=== PATIENT | female | born 1970 | race Caucasian/White ===

== ENCOUNTER 2020-03-05 10:54 | Inpatient (IN) ==
[2020-03-05] MEDS ORDERED: LEVAQUIN PREMIX IV 500 MG 500 MG/100 ML BAG IV SCH (13:00)
[2020-03-05] MEDS ORDERED: LEVAQUIN PREMIX IV 500 MG 500 MG/100 ML BAG IV ONE (13:07)
[2020-03-05] MEDS: ROBITUSSIN DM PO SCH ×3 (13:18→21:00)
[2020-03-05] MEDS: NS 1000 ML 1,000 ML IV SCH (13:19)
[2020-03-05 13:27] LABS: ALANINE AMINOTRANSFERASE 31 Units/L (12-78); ALBUMIN 3.6 g/dL (3.4-5.0); ALKALINE PHOSPHATASE 125 Units/L (46-116); ASPARTATE AMINO TRANSFERASE 25 Units/L (15-37); BLOOD UREA NITROGEN 9 mg/dL (7-18); CALCIUM 8.6 mg/dL (8.5-10.1); CARBON DIOXIDE 34.2 mmol/L (21-32); CHLORIDE 101 mmol/L (98-107); CREATININE 0.84 mg/dL (0.55-1.02); MAGNESIUM 2.1 mg/dL (1.7-2.9); SODIUM 142 mmol/L (136-145); TOTAL PROTEIN 8.4 g/dL (6.4-8.2); eGFR NON BLACK RACES > 60 (>60)
[2020-03-05 13:29] LABS: BASOPHILS # (AUTO) 0.1 X10^3/uL (0.0-0.1); BASOPHILS % (AUTO) 0.9 % (0.2-1.0); EOSINOPHILS # (AUTO) 0.1 x10^3/uL (0.0-0.2); HEMATOCRIT 30.9 % (36.0-47.0); HEMOGLOBIN 9.5 g/dL (12.0-16.0); LYMPHOCYTES # (AUTO) 2.2 X10^3/uL (1.3-2.9); LYMPHOCYTES % (AUTO) 23.3 % (21.0-51.0); MEAN CORPUSCULAR HEMOGLOBIN 22.2 pg (27.0-34.0); MEAN CORPUSCULAR HGB CONC 30.8 g/dL (33.0-35.0); MEAN PLATELET VOLUME 7.8 fL (7.4-11.0); MONOCYTES % (AUTO) 10.3 % (0.0-13.0); NEUTROPHILS % (AUTO) 64.5 % (42.0-75.0); PLATELET COUNT 451 X10^3/uL (150.0-450.0); RED CELL DISTRIBUTION WIDTH 22.3 % (11.6-16.5); WHITE BLOOD COUNT 9.3 X10^3/uL (3.6-10.0)
[2020-03-05 13:50] LABS: PLATELET MORPHOLOGY COMMENT NORMAL (NORMAL)
[2020-03-05 13:51] LABS: ANISOCYTOSIS 2+; HYPOCHROMASIA 1+; MICROCYTOSIS SLIGHT
--- NOTE | 2020-03-05 13:54 | RAD ---
HISTORYSOB, COUGH, BRONCHITISSTUDYCHEST x-ray, 1 VIEWCOMPARISONCT 01/23/2020 and 11/17/2018FINDINGSVague lung infiltrates persist there may be slightly nodular density in the right upper lobe. Findings are very similar to prior study. Heart is normal in size. No pneumothorax or pleural effusion is seen.IMPRESSIONPersistent lung infiltrates with slight nodularity, similar to recent CT. These may be chronic interstitial lung disease changes given chronicity. Less promise interstitial and ground-glass infiltrates are seen on 11/17/2018 exam. Follow-up chest CT in a few months time may be useful to monitor progression.Electronically signed by: Omkar Rosales (March 05, 2020 13:52:58)
[2020-03-05 14:31] LABS: MYCOPLASMA PNEUMONIAE IGM AB POSITIVE (NEGATIVE)
[2020-03-05 15:40] LABS: ABG BASE EXCESS 5.9 mmol/L (-2.0-2.0)
[2020-03-05 15:41] LABS: ABG HCO3 32.5 mmol/L (22-26)
[2020-03-05] MEDS: DUONEB 0.5 MG/3 MG (3 mL) NEB SCH ×2 (16:55→21:15)
[2020-03-05] MEDS ORDERED: ADACEL or BOOSTRIX TDaP VACCINE IM ONE (17:39)
--- NOTE | 2020-03-05 17:44 | DR.H&P ---
H&P - History & Physical for Day of: H&P Date: 03/05/20 - Chief Complaint Chief Complaint: CCC, FELTON, LLE PUNCTURE WOUND DRAINING - History of Present Illness History of Present Illness: PT IS 49 WF DIRECT ADMIT WITH CCC, SOB, WORSE ON EXERTION WITH DIFFUSE WHEEZING. PT HAD BILATERAL LOWER EXTREMITY EDEMA + 3 WITH PUNCTURE WOUND TO LEFT THOMPSON WITH CONTINUOUS CLEAR DRAINAGE. PT HAS TAKEN 2 ROUNDS OF PO ANTIBIOTICS, KEFLEX AND DOXYCYCLINE WITHOUT IMPROVEMENT OF CHEST CONGESTION. PT DENIES FEVER OR KNOWN COVID EXPOSURE. PT HAS PMH OF COPD, ANEMIA, OA, HTN. PT ADMITTED FOR TREATMENT OF ACUTE ILLNESS. 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, Other - Family History Family Medical History: Hypertension - Social History Does patient currently use any type of tobacco product: Yes Have you used tobacco products in the last 12 months: Yes Type of Tobacco Use: Cigarettes Does any household member use tobacco: Yes Alcohol Use: None Drug Use: None - Medications Home Medications: ciprofloxacin [From Cipro] Allergy (Verified 03/05/20 12:32) Sulfa (Sulfonamide Antibiotics) [SULFA] Allergy (Verified 06/23/18 14:52) - Review of Systems Constitutional: Weakness Eyes: No Symptoms Reported ENT: No Symptoms Reported Respiratory: Cough, Dry, Shortness of Breath, SOB with Excertion, Sputum, Wheezing Cardiovascular: No Symptoms Reported, Edema Gastrointestinal: No Symptoms Reported Genitourinary: No Symptoms Reported Musculoskeletal: Back Pain, Leg Pain Skin: Wound Neurological: Weakness - Physical Exam Vital Signs: Temperature 98.2 F Pulse Rate [Left Brachial] 66 Pulse Rate 75 Respiratory Rate 20 Blood Pressure [Left Arm] 182/84 Blood Pressure 113/71 O2 Sat by Pulse Oximetry 100 Oriented: Normal Eyes: Normal Ear: Normal Nose: Normal Throat: Normal Respiratory: RLL Diminished, LLL Diminished Cardiovascular: Edema : Normal Auscultation: Bowel Sounds: Normal Palpation: Normal Tenderness: Normal Skin: Decreased Turgur, Wound (PUNCTURE WOUND TO LEFT THOMPSON) Musculoskeletal: Left, Leg, Back:Thoracic, Back:Lumbar Psychiatric: Anxiety Affect: Anxious Speech Pattern: Clear, Appropriate - Assessment/Plan (1) COPD exacerbation Status: Acute Plan: ADMIT, RESP CONSULT. COVID 19 ON ADMISSION. STREP, FLU MYCOPLASMA COLLECTED ON ADMISSION. SPUTUM CULTURE. WOUND CULTURE, IV ATBX. GENTLE IV HYDRATION, DUO NEBS, IV SOLU MEDROL. BP CONTROL, CXR ON ADMISSION, VERIFY HOME MEDICATION (2) Puncture wound of leg not thigh, left Status: Acute (3) Hypertension Status: Acute (4) Anemia Status: Acute - Allergies Allergies/Adverse Reactions: Allergies Allergy/AdvReac Type Severity Reaction Status Date / Time ciprofloxacin [From Cipro] Allergy Verified 03/05/20 12:32 Sulfa (Sulfonamide Allergy Verified 06/23/18 14:52 Antibiotics) [SULFA]
[2020-03-05] MEDS: SOLU-Medrol 125 MG VIAL IVP SCH ×2 (18:15→22:56)
[2020-03-05] MEDS: HEMOCYTE-PLUS PO SCH (18:16)
[2020-03-05] MEDS: REQUIP PO SCH (21:00)
[2020-03-05] MEDS: PULMICORT NEB TX 0.5 MG NEB SCH (21:15)
[2020-03-05] MEDS: NORCO 7.5/325 MG TAB PO PRN (22:00)
[2020-03-06] MEDS: NS 1000 ML 1,000 ML IV SCH ×4 (00:32→21:59)
[2020-03-06] MEDS: DUONEB 0.5 MG/3 MG (3 mL) NEB SCH ×6 (00:40→20:41)
[2020-03-06] MEDS: NORCO 7.5/325 MG TAB PO PRN ×2 (04:00→21:59)
[2020-03-06 05:16] LABS: BASOPHILS % (AUTO) 0.2 % (0.2-1.0); HEMOGLOBIN 9.6 g/dL (12.0-16.0); LYMPHOCYTES # (AUTO) 0.5 X10^3/uL (1.3-2.9); LYMPHOCYTES % (AUTO) 5.9 % (21.0-51.0); MEAN CORPUSCULAR HEMOGLOBIN 21.8 pg (27.0-34.0); MEAN CORPUSCULAR VOLUME 72.8 fL (80.0-100.0); MONOCYTES # (AUTO) 0.1 x10^3/uL (0.3-0.8); MONOCYTES % (AUTO) 0.8 % (0.0-13.0); NEUTROPHILS % (AUTO) 93.1 % (42.0-75.0); PLATELET COUNT 459 X10^3/uL (150.0-450.0); RED BLOOD COUNT 4.39 X10^6/uL (3.5-5.4); RED CELL DISTRIBUTION WIDTH 21.7 % (11.6-16.5); WHITE BLOOD COUNT 8.6 X10^3/uL (3.6-10.0)
[2020-03-06 05:29] LABS: ALANINE AMINOTRANSFERASE 29 Units/L (12-78); ALBUMIN 3.6 g/dL (3.4-5.0); ALKALINE PHOSPHATASE 115 Units/L (46-116); ASPARTATE AMINO TRANSFERASE 21 Units/L (15-37); BLOOD UREA NITROGEN 8 mg/dL (7-18); CALCIUM 8.8 mg/dL (8.5-10.1); CARBON DIOXIDE 32.4 mmol/L (21-32); CHLORIDE 100 mmol/L (98-107); COR NA(FOR HYPERGLY) 142 mmol/L (136-145); SODIUM 140 mmol/L (136-145); TOTAL PROTEIN 8.8 g/dL (6.4-8.2); eGFR NON BLACK RACES > 60 (>60)
[2020-03-06] MEDS: SOLU-Medrol 125 MG VIAL IVP SCH (05:48)
[2020-03-06 06:12] LABS: BAND NEUTROPHILS % 4 % (0-10); PLATELET MORPHOLOGY COMMENT NORMAL (NORMAL)
[2020-03-06 06:13] LABS: ANISOCYTOSIS 1+; HYPOCHROMASIA 2+
[2020-03-06 06:37] LABS: BILIRUBIN,URINE NEGATIVE (NEGATIVE); BLOOD/HEMOGLOBIN,URINE NEGATIVE (NEGATIVE); GLUCOSE, URINE NEGATIVE (NEGATIVE); KETONES,URINE NEGATIVE (NEGATIVE); LEUKOCYTE ESTERASE ,URINE NEGATIVE (NEGATIVE); NITRITES,URINE NEGATIVE (NEGATIVE); PROTEIN,URINE NEGATIVE (NEGATIVE); UROBILINOGEN,URINE NORMAL (NORMAL)
[2020-03-06 06:38] LABS: APPEARANCE,URINE CLEAR (CLEAR); COLOR,URINE YELLOW (YELLOW)
[2020-03-06 08:46] VITALS: BMI 44.6
[2020-03-06] MEDS ORDERED: ZESTRIL TAB 20 MG ONE (08:52)
[2020-03-06] MEDS ORDERED: LASIX IVP SCH (09:00)
[2020-03-06] MEDS ORDERED: K-DUR TAB 20 MEQ PO SCH (09:00)
[2020-03-06] MEDS ORDERED: LISINOPRIL HYDROCHLOROTHIAZIDE PO SCH (09:00)
[2020-03-06] MEDS: PULMICORT NEB TX 0.5 MG NEB SCH ×2 (09:18→20:40)
[2020-03-06] MEDS: HYDROCHLOROTHIAZIDE 12.5 MG CAP PO SCH (09:18)
[2020-03-06] MEDS: ZESTRIL TAB 20 MG PO SCH (09:18)
[2020-03-06] MEDS: HEMOCYTE-PLUS PO SCH (09:18)
[2020-03-06] MEDS: REQUIP PO SCH ×3 (09:18→21:59)
[2020-03-06] MEDS: ROBITUSSIN DM PO SCH ×4 (09:19→21:59)
[2020-03-06] MEDS: PROTONIX INJ 40 MG VIAL IVP SCH (09:20)
[2020-03-06] MEDS: ZITHROMAX INJ 500 MG VIAL 500 MG in D5W 250 ML IV 250 ML IV SCH (09:22)
[2020-03-06] MEDS: PROzac PO SCH (09:36)
[2020-03-06] MEDS: INFeD or DEXFERRUM 25 MG in NS 100 ML IV 100 ML IV NR ×2 (10:14→13:00)
[2020-03-06] MEDS ORDERED: INFeD or DEXFERRUM 975 MG in NS 500 ML IV 500 ML IV NR (11:00)
[2020-03-07] MEDS: DUONEB 0.5 MG/3 MG (3 mL) NEB SCH ×6 (01:17→20:15)
[2020-03-07] MEDS: REQUIP PO SCH ×3 (05:00→22:00)
[2020-03-07] MEDS: NORCO 7.5/325 MG TAB PO PRN ×2 (05:02→22:00)
[2020-03-07 06:14] LABS: BASOPHILS % (AUTO) 0.3 % (0.2-1.0); EOSINOPHILS % (AUTO) 0.1 % (0.9-2.9); HEMATOCRIT 28.8 % (36.0-47.0); HEMOGLOBIN 8.8 g/dL (12.0-16.0); LYMPHOCYTES # (AUTO) 2.1 X10^3/uL (1.3-2.9); LYMPHOCYTES % (AUTO) 11.7 % (21.0-51.0); MEAN CORPUSCULAR HEMOGLOBIN 22.2 pg (27.0-34.0); MEAN CORPUSCULAR HGB CONC 30.7 g/dL (33.0-35.0); MEAN CORPUSCULAR VOLUME 72.2 fL (80.0-100.0); MEAN PLATELET VOLUME 7.9 fL (7.4-11.0); MONOCYTES # (AUTO) 1.6 x10^3/uL (0.3-0.8); MONOCYTES % (AUTO) 9.2 % (0.0-13.0); NEUTROPHILS # (AUTO) 14.1 x10^3/uL (2.2-4.8); NEUTROPHILS % (AUTO) 78.7 % (42.0-75.0); PLATELET COUNT 443 X10^3/uL (150.0-450.0); RED BLOOD COUNT 3.98 X10^6/uL (3.5-5.4); WHITE BLOOD COUNT 17.9 X10^3/uL (3.6-10.0)
[2020-03-07 06:15] LABS: ALBUMIN 3.1 g/dL (3.4-5.0); ALKALINE PHOSPHATASE 134 Units/L (46-116); BLOOD UREA NITROGEN 11 mg/dL (7-18); CALCIUM 8.3 mg/dL (8.5-10.1); CARBON DIOXIDE 34.2 mmol/L (21-32); CHLORIDE 103 mmol/L (98-107); COR NA(FOR HYPERGLY) 141 mmol/L (136-145); CREATININE 0.81 mg/dL (0.55-1.02); SODIUM 141 mmol/L (136-145); TOTAL PROTEIN 7.6 g/dL (6.4-8.2); eGFR NON BLACK RACES > 60 (>60)
[2020-03-07 06:46] LABS: ALANINE AMINOTRANSFERASE 27 Units/L (12-78); ASPARTATE AMINO TRANSFERASE 28 Units/L (15-37)
[2020-03-07] MEDS: NS 1000 ML 1,000 ML IV SCH (07:00)
[2020-03-07 07:06] LABS: ANISOCYTOSIS 1+; HYPOCHROMASIA 1+; PLATELET MORPHOLOGY COMMENT NORMAL (NORMAL)
[2020-03-07] MEDS ORDERED: ZESTRIL TAB 20 MG ONE (08:07)
[2020-03-07] MEDS: PULMICORT NEB TX 0.5 MG NEB SCH ×2 (09:10→20:15)
[2020-03-07] MEDS: HEMOCYTE-PLUS PO SCH (09:12)
[2020-03-07] MEDS: ZITHROMAX INJ 500 MG VIAL 500 MG in D5W 250 ML IV 250 ML IV SCH (09:12)
[2020-03-07] MEDS: HYDROCHLOROTHIAZIDE 12.5 MG CAP PO SCH (09:12)
[2020-03-07] MEDS: ZESTRIL TAB 20 MG PO SCH (09:13)
[2020-03-07] MEDS: PROTONIX INJ 40 MG VIAL IVP SCH ×2 (09:13→22:00)
[2020-03-07] MEDS: PROzac PO SCH (09:13)
[2020-03-07] MEDS: ROBITUSSIN DM PO SCH ×4 (09:13→22:00)
[2020-03-07] MEDS ORDERED: PHARMACY CONSULT - VANCOMYCIN XX SCH (10:00)
[2020-03-07] MEDS: VANCOMYCIN HCL 1 G in D5W 250 ML IV 250 ML IV SCH ×3 (11:11→22:00)
--- NOTE | 2020-03-07 18:27 | RAD ---
HISTORY:COPDStudy: Single view chestComparison:03/05/2020, chest CT 01/23/2020Findings:Nonspecific interstitial prominence is again seen in the lungs similar to prior with mild perihilar bronchial thickening. No new infiltrate, pleural effusion or pneumothorax identified. Heart size within normal limits. The soft tissues are intactIMPRESSION:1. Nonspecific interstitial prominence and perihilar bronchial thickening without new infiltrate from recent prior.Electronically signed by: JACK PA (March 07, 2020 18:25:13)
[2020-03-07] MEDS ORDERED: POTASSIUM CHL 60 MEQ/NS 0.45% 500 ML IV PRN (19:48)
[2020-03-07] MEDS ORDERED: KLOR-CON PO PRN (19:48)
[2020-03-07] MEDS ORDERED: POTASSIUM CHLORIDE LIQ 20 MEQ UDC PO PRN (19:48)
[2020-03-07] MEDS ORDERED: POTASSIUM CHL 40 MEQ/NS 0.45% 500 ML IV PRN (19:48)
[2020-03-07] MEDS ORDERED: K-DUR TAB 20 MEQ PO PRN (19:48)
[2020-03-07] MEDS ORDERED: K-RIDER 10 MEQ/NS 100 ML 10 MEQ/100 ML BAG IV PRN (19:48)
[2020-03-07] MEDS ORDERED: MICRO K EXTEN CAP 10 MEQ PO PRN (19:48)
[2020-03-07] MEDS ORDERED: BENADRYL INJ 50 MG VIAL IVP SCH (21:00)
[2020-03-07] MEDS: NEURONTIN TAB 600 MG PO SCH (22:00)
[2020-03-08] MEDS: DUONEB 0.5 MG/3 MG (3 mL) NEB SCH ×6 (00:50→21:30)
[2020-03-08] MEDS: NS 1000 ML 1,000 ML IV SCH ×2 (03:07→16:35)
[2020-03-08] MEDS ORDERED: PHARMACY COMMENT IV NR (05:30)
[2020-03-08 06:30] LABS: BASOPHILS % (AUTO) 0.3 % (0.2-1.0); EOSINOPHILS # (AUTO) 0.1 x10^3/uL (0.0-0.2); EOSINOPHILS % (AUTO) 1.6 % (0.9-2.9); HEMATOCRIT 29.7 % (36.0-47.0); LYMPHOCYTES # (AUTO) 3.1 X10^3/uL (1.3-2.9); LYMPHOCYTES % (AUTO) 32.9 % (21.0-51.0); MEAN CORPUSCULAR HEMOGLOBIN 22.1 pg (27.0-34.0); MEAN CORPUSCULAR HGB CONC 30.4 g/dL (33.0-35.0); MEAN CORPUSCULAR VOLUME 72.7 fL (80.0-100.0); MEAN PLATELET VOLUME 7.7 fL (7.4-11.0); MONOCYTES % (AUTO) 11.1 % (0.0-13.0); NEUTROPHILS % (AUTO) 54.1 % (42.0-75.0); PLATELET COUNT 417 X10^3/uL (150.0-450.0); RED BLOOD COUNT 4.08 X10^6/uL (3.5-5.4); RED CELL DISTRIBUTION WIDTH 21.8 % (11.6-16.5); WHITE BLOOD COUNT 9.3 X10^3/uL (3.6-10.0)
[2020-03-08 06:40] LABS: VANCOMYCIN,TROUGH 15.8 ug/mL (15-20)
[2020-03-08] MEDS: REQUIP PO SCH ×3 (06:42→21:45)
[2020-03-08] MEDS: VANCOMYCIN HCL 1 G in D5W 250 ML IV 250 ML IV SCH ×3 (06:43→21:45)
[2020-03-08 06:52] LABS: ALANINE AMINOTRANSFERASE 28 Units/L (12-78); ALBUMIN 3.3 g/dL (3.4-5.0); ALKALINE PHOSPHATASE 114 Units/L (46-116); ASPARTATE AMINO TRANSFERASE 19 Units/L (15-37); BLOOD UREA NITROGEN 9 mg/dL (7-18); CALCIUM 8.4 mg/dL (8.5-10.1); CARBON DIOXIDE 32.9 mmol/L (21-32); CHLORIDE 99 mmol/L (98-107); CREATININE 0.88 mg/dL (0.55-1.02); SODIUM 137 mmol/L (136-145); TOTAL PROTEIN 7.7 g/dL (6.4-8.2); eGFR NON BLACK RACES > 60 (>60)
[2020-03-08 07:08] LABS: ANISOCYTOSIS 1+; HYPOCHROMASIA 1+; PLATELET MORPHOLOGY COMMENT NORMAL (NORMAL)
[2020-03-08] MEDS: NORCO 7.5/325 MG TAB PO PRN (07:28)
[2020-03-08] MEDS ORDERED: BENADRYL INJ 50 MG VIAL IVP PRN (09:15)
[2020-03-08] MEDS ORDERED: ZESTRIL TAB 20 MG ONE (09:33)
[2020-03-08] MEDS: PROzac PO SCH (09:37)
[2020-03-08] MEDS: ZESTRIL TAB 20 MG PO SCH (09:38)
[2020-03-08] MEDS: HYDROCHLOROTHIAZIDE 12.5 MG CAP PO SCH (09:38)
[2020-03-08] MEDS: HEMOCYTE-PLUS PO SCH (09:38)
[2020-03-08] MEDS: PROTONIX INJ 40 MG VIAL IVP SCH ×2 (09:38→21:45)
[2020-03-08] MEDS: ROBITUSSIN DM PO SCH ×4 (09:39→21:46)
[2020-03-08] MEDS: ZITHROMAX INJ 500 MG VIAL 500 MG in D5W 250 ML IV 250 ML IV SCH (09:39)
[2020-03-08] MEDS: PULMICORT NEB TX 0.5 MG NEB SCH ×2 (09:44→21:30)
[2020-03-08] MEDS: NEURONTIN TAB 600 MG PO SCH (21:46)
[2020-03-09] MEDS: DUONEB 0.5 MG/3 MG (3 mL) NEB SCH ×3 (00:40→09:15)
[2020-03-09] MEDS: NS 1000 ML 1,000 ML IV SCH (02:23)
[2020-03-09] MEDS: VANCOMYCIN HCL 1 G in D5W 250 ML IV 250 ML IV SCH (05:59)
[2020-03-09] MEDS: REQUIP PO SCH (05:59)
[2020-03-09 06:29] LABS: BASOPHILS # (AUTO) 0.1 X10^3/uL (0.0-0.1); BASOPHILS % (AUTO) 1.2 % (0.2-1.0); EOSINOPHILS # (AUTO) 0.2 x10^3/uL (0.0-0.2); EOSINOPHILS % (AUTO) 1.7 % (0.9-2.9); HEMATOCRIT 28.4 % (36.0-47.0); HEMOGLOBIN 8.7 g/dL (12.0-16.0); LYMPHOCYTES # (AUTO) 2.3 X10^3/uL (1.3-2.9); LYMPHOCYTES % (AUTO) 25.6 % (21.0-51.0); MEAN CORPUSCULAR HEMOGLOBIN 22.2 pg (27.0-34.0); MEAN CORPUSCULAR HGB CONC 30.5 g/dL (33.0-35.0); MEAN CORPUSCULAR VOLUME 72.7 fL (80.0-100.0); MEAN PLATELET VOLUME 7.6 fL (7.4-11.0); MONOCYTES # (AUTO) 1.2 x10^3/uL (0.3-0.8); MONOCYTES % (AUTO) 13.2 % (0.0-13.0); NEUTROPHILS # (AUTO) 5.3 x10^3/uL (2.2-4.8); NEUTROPHILS % (AUTO) 58.3 % (42.0-75.0); PLATELET COUNT 381 X10^3/uL (150.0-450.0); RED CELL DISTRIBUTION WIDTH 22.3 % (11.6-16.5); WHITE BLOOD COUNT 9.1 X10^3/uL (3.6-10.0)
[2020-03-09 06:42] LABS: ALANINE AMINOTRANSFERASE 29 Units/L (12-78); ALBUMIN 3.1 g/dL (3.4-5.0); ALKALINE PHOSPHATASE 112 Units/L (46-116); ASPARTATE AMINO TRANSFERASE 19 Units/L (15-37); BLOOD UREA NITROGEN 10 mg/dL (7-18); CALCIUM 8.5 mg/dL (8.5-10.1); CARBON DIOXIDE 35.6 mmol/L (21-32); CHLORIDE 101 mmol/L (98-107); COR CA(FOR HYPOALB) 9.2 mg/dL (8.5-10.1); CREATININE 0.87 mg/dL (0.55-1.02); SODIUM 140 mmol/L (136-145); TOTAL PROTEIN 7.1 g/dL (6.4-8.2); eGFR NON BLACK RACES > 60 (>60)
[2020-03-09 07:17] LABS: BAND NEUTROPHILS % 2 % (0-10)
[2020-03-09 07:18] LABS: ANISOCYTOSIS 1+; HYPOCHROMASIA 1+; PLATELET MORPHOLOGY COMMENT NORMAL (NORMAL)
[2020-03-09] MEDS: PULMICORT NEB TX 0.5 MG NEB SCH (09:15)
[2020-03-09] MEDS ORDERED: ZESTRIL TAB 20 MG ONE (09:40)
[2020-03-09] MEDS: ZITHROMAX INJ 500 MG VIAL 500 MG in D5W 250 ML IV 250 ML IV SCH (10:13)
[2020-03-09] MEDS: HEMOCYTE-PLUS PO SCH (10:14)
[2020-03-09] MEDS: PROzac PO SCH (10:14)
[2020-03-09] MEDS: ZESTRIL TAB 20 MG PO SCH (10:14)
[2020-03-09] MEDS: HYDROCHLOROTHIAZIDE 12.5 MG CAP PO SCH (10:14)
[2020-03-09] MEDS: PROTONIX INJ 40 MG VIAL IVP SCH (10:14)
[2020-03-09] MEDS: ROBITUSSIN DM PO SCH (10:15)
--- NOTE | 2020-03-09 11:43 | PCM.PROG ---
Progress Note - Progress Note for Day of Date of Exam: 03/08/20 - Subjective Subjective: Mrs. Tejeda is a 49-year-old white female admitted with chronic obstructive pulmonary disease exacerbation, shortness of breath, positive for mycoplasma. The patient was started on IV Zithromax. She has a wound to her left lower extremity which was positive for MRSA. Her wound culture results are back today. She is on IV Vancomycin. She has a history of Cipro allergy, as well as sulfa drug allergy. This morning, the patients white count was at 9.3 and she has been afebrile. We did order blood cultures. The patients hemoglobin was at 9. She did have a positive occult stool and she is not currently on any anticoagulant therapy or nonsteroidal anti-inflammatory drugs. The patient does report that she does take Goody powders on a daily basis. She has a history of iron deficiency anemia as well. We have resumed Hemocyte Plus p.o., as well IV iron infusion. She denies any mohini blood in her stool, any abdominal pain, or changes in bowel habits such as nausea, vomiting, diarrhea, or constipation. The patients blood pressure has been stable. She continues with productive cough and fatigue. The patient states that she is not rested well. Dr. Mckeon consulted for wound assessment, outpt colonoscopy and egd. - Past Medical Family Social History Past Med/Fam/Surg Hx: No changes since H&P Allergies: Allergies ciprofloxacin [From Cipro] Allergy (Verified 03/05/20 12:32) Sulfa (Sulfonamide Antibiotics) [SULFA] Allergy (Verified 06/23/18 14:52) - Review of Systems ROS: No change since H&P - Vital Signs and I&O's Vital Signs: Temperature 97.7 F Pulse Rate [Left Brachial] 65 Pulse Rate 88 Respiratory Rate 22 Blood Pressure [Right Arm] 158/95 Blood Pressure [Left Arm] 182/84 Blood Pressure 113/71 O2 Sat by Pulse Oximetry 94 Intake and Output: Intake & Output 03/06/20 03/07/20 03/08/20 03/09/20 11:59 11:59 11:59 11:59 Intake Total 2600 / 2600 6705 / 6705 5653 / 5653 6476 / 6476 Output Total 2300 / 2300 Balance 300 / 300 6705 / 6705 5653 / 5653 6476 / 6476 - Physical Exam Oriented: Normal Eyes: Normal Ear: Normal Nose: Normal Throat: Normal Respiratory: Diminished, Wheezes, Rhonchi Cardiovascular: Edema : Normal Auscultation: Bowel Sounds: Normal Tenderness: Normal Skin: Decreased Turgur, Wound (PUNCTURE WOUND TO LEFT THOMPSON) Musculoskeletal: Left, Leg, Back:Thoracic, Back:Lumbar Psychiatric: Anxiety Affect: Anxious Speech Pattern: Clear, Appropriate - Laboratory and Diagnostics Result Diagrams: 03/09/20 05:16 03/09/20 05:16 Labs: 03/07/20 09:21 Blood Blood Culture - Preliminary 03/07/20 09:06 Blood Blood Culture - Preliminary 03/05/20 17:20 Sputum - Expectorated Sputum Sputum Culture - Final Methicillin Resis Staph Aureus 03/05/20 17:20 Sputum - Expectorated Sputum - Final 03/05/20 17:23 Leg - Left Wound Culture - Final Methicillin Resis Staph Aureus Laboratory WBC 9.1 X10^3/uL (3.6-10.0) 03/09/20 05:16 RBC 3.90 X10^6/uL (3.5-5.4) 03/09/20 05:16 Hgb 8.7 g/dL (12.0-16.0) L 03/09/20 05:16 Hct 28.4 % (36.0-47.0) L 03/09/20 05:16 MCV 72.7 fL (80.0-100.0) L 03/09/20 05:16 MCH 22.2 pg (27.0-34.0) L 03/09/20 05:16 MCHC 30.5 g/dL (33.0-35.0) L 03/09/20 05:16 RDW 22.3 % (11.6-16.5) H 03/09/20 05:16 Plt Count 381 X10^3/uL (150.0-450.0) 03/09/20 05:16 Plt Count Comment Adequate (ADEQUATE) 03/09/20 05:16 MPV 7.6 fL (7.4-11.0) 03/09/20 05:16 Neut % (Auto) 58.3 % (42.0-75.0) 03/09/20 05:16 Lymph % (Auto) 25.6 % (21.0-51.0) 03/09/20 05:16 [place] % (Auto) 13.2 % (0.0-13.0) H 03/09/20 05:16 Eos % (Auto) 1.7 % (0.9-2.9) 03/09/20 05:16 Baso % (Auto) 1.2 % (0.2-1.0) H 03/09/20 05:16 Neut # (Auto) 5.3 x10^3/uL (2.2-4.8) H 03/09/20 05:16 Lymph # (Auto) 2.3 X10^3/uL (1.3-2.9) 03/09/20 05:16 [place] # (Auto) 1.2 x10^3/uL (0.3-0.8) H 03/09/20 05:16 Eos # (Auto) 0.2 x10^3/uL (0.0-0.2) 03/09/20 05:16 Baso # (Auto) 0.1 X10^3/uL (0.0-0.1) 03/09/20 05:16 Absolute Nucleated RBC 0.3 /100WBC 03/09/20 05:16 Total Counted 100 03/09/20 05:16 Neutrophils % (Manual) 68 % (39-76) 03/09/20 05:16 Band Neutrophils % 2 % (0-10) 03/09/20 05:16 Lymphocytes % (Manual) 21 % (13-43) 03/09/20 05:16 Monocytes % (Manual) 7 % (4-9) 03/09/20 05:16 Eosinophils % (Manual) 2 % (0-6) 03/09/20 05:16 Plt Morphology Comment Normal (NORMAL) 03/09/20 05:16 RBC Morphology Abnormal (NORMAL) A 03/09/20 05:16 Hypochromasia 1+ A 03/09/20 05:16 Anisocytosis 1+ A 03/09/20 05:16 Microcytosis Slight A 03/05/20 12:59 Sample Site Right brachial 03/05/20 15:30 ABG pH 7.380 (7.35-7.45) 03/05/20 15:30 ABG pCO2 55.0 mmHg (35.0-45.0) H* 03/05/20 15:30 ABG pO2 100.0 mmHg (80.0-100.0) 03/05/20 15:30 ABG HCO3 32.5 mmol/L (22-26) H* 03/05/20 15:30 ABG O2 Saturation 98.0 % (90-100) 03/05/20 15:30 ABG Base Excess 5.9 mmol/L (-2.0-2.0) H 03/05/20 15:30 Jay Test Na 03/05/20 15:30 A-a Gradient 31.0 mmHg 03/05/20 15:30 FiO2 28.0 03/05/20 15:30 Blood Gas Comments Debbie well aw 03/05/20 15:30 Sodium 140 mmol/L (136-145) 03/09/20 05:16 Corrected Sodium TNP 03/09/20 05:16 Potassium 4.2 mmol/L (3.5-5.1) 03/09/20 05:16 Chloride 101 mmol/L (98-107) 03/09/20 05:16 Carbon Dioxide 35.6 mmol/L (21-32) H 03/09/20 05:16 BUN 10 mg/dL (7-18) 03/09/20 05:16 Creatinine 0.87 mg/dL (0.55-1.02) 03/09/20 05:16 Est GFR (MDRD) Af Amer > 60 (>60) 03/09/20 05:16 Est GFR (MDRD) Non-Af > 60 (>60) 03/09/20 05:16 Glucose 97 mg/dL (65-99) 03/09/20 05:16 Calcium 8.5 mg/dL (8.5-10.1) 03/09/20 05:16 Corrected Calcium 9.2 mg/dL (8.5-10.1) 03/09/20 05:16 Magnesium 2.1 mg/dL (1.7-2.9) 03/05/20 12:59 Iron 13 ug/dL (50-175) L 03/05/20 12:59 Transferrin 378 mg/dL (202-364) H 03/05/20 12:59 Ferritin 5 ng/mL (8-252) L 03/05/20 12:59 Total Bilirubin 0.20 mg/dL (0.2-1.0) 03/09/20 05:16 AST 19 Units/L (15-37) 03/09/20 05:16 ALT 29 Units/L (12-78) 03/09/20 05:16 Alkaline Phosphatase 112 Units/L (46-116) 03/09/20 05:16 Total Protein 7.1 g/dL (6.4-8.2) 03/09/20 05:16 Albumin 3.1 g/dL (3.4-5.0) L 03/09/20 05:16 Globulin 4.0 g/dL (2.5-4.5) 03/09/20 05:16 Albumin/Globulin Ratio 0.8 Ratio (1.1-2.1) L 03/09/20 05:16 Vitamin B12 584 pg/mL (193-986) 03/05/20 12:59 Folate 13.9 ng/mL (>8.6) 03/05/20 12:59 Specimen Type Clean catch urine 03/06/20 06:20 Urine Color Yellow (YELLOW) 03/06/20 06:20 Urine Appearance Clear (CLEAR) 03/06/20 06:20 Urine pH 7.0 (5.0 - 8.0) 03/06/20 06:20 Ur Specific [place] 1.005 (1.000-1.030) 03/06/20 06:20 Urine Protein Negative (NEGATIVE) 03/06/20 06:20 Urine Glucose (UA) Negative (NEGATIVE) 03/06/20 06:20 Urine Ketones Negative (NEGATIVE) 03/06/20 06:20 Urine Occult Blood Negative (NEGATIVE) 03/06/20 06:20 Urine Nitrite Negative (NEGATIVE) 03/06/20 06:20 Urine Bilirubin Negative (NEGATIVE) 03/06/20 06:20 Urine Urobilinogen Normal (NORMAL) 03/06/20 06:20 Ur Leukocyte Esterase Negative (NEGATIVE) 03/06/20 06:20 Stool Description 40g,dbrown,formed 03/06/20 14:34 Stl Occult Blood (IFOB) Positive (NEGATIVE) A 03/06/20 14:34 Vancomycin Trough 15.8 ug/mL (15-20) 03/08/20 05:28 Influenza Type A Ag Negative-presumptive (NEGATIVE) 03/05/20 13:10 Influenza Type B Ag Negative-presumptive (NEGATIVE) 03/05/20 13:10 Mycoplasma pneumon IgG Positive (NEGATIVE) A 03/05/20 12:59 SARS-CoV-2 (PCR) Negative (NEGATIVE) 03/05/20 12:04 Staph aureus (PCR) Positive (NEGATIVE) A 03/08/20 19:20 MRSA (PCR) Positive (NEGATIVE) A 03/08/20 19:20 S. pyogenes (TEM-PCR) Not detected (NOT DETECT) 03/05/20 13:10 - Plan (1) COPD exacerbation Status: Acute Plan: RESP THERAPY, PRN SUPPLEMENTAL O2. COVID 19 NEGATIVE ON ADMISSION. STREP, FLU MYCOPLASMA COLLECTED ON ADMISSION. SPUTUM CULTURE. WOUND CULTURE, IV ATBX. GENTLE IV HYDRATION, DUO NEBS, IV SOLU MEDROLX 3 DOSES ON ADMISSION. BP CONTROL (2) Puncture wound of leg not thigh, left Status: Acute (3) Hypertension Status: Acute (4) Anemia Status: Acute
[2020-03-09 13:02] VITALS: BP 191/81
== END 2020-03-09 12:53 | disposition home or self-care (01) | DRG 202 ==
LOC: ICU 11:22 → MED/SURG 14:57
PROVIDERS: ADMIT Internal Medicine; ATTEND Internal Medicine
DX: L03.116 Cellulitis of left lower limb; B95.62 Methicillin resistant Staphylococcus aureus infection as the cause of diseases classified elsewhere; J20.0 Acute bronchitis due to Mycoplasma pneumoniae; I10 Essential (primary) hypertension; R06.02 Shortness of breath; J44.0 Chronic obstructive pulmonary disease with (acute) lower respiratory infection; J44.1 Chronic obstructive pulmonary disease with (acute) exacerbation; D50.8 Other iron deficiency anemias; Z11.59 Encounter for screening for other viral diseases; F41.8 Other specified anxiety disorders; Z23 Encounter for immunization; R60.0 Localized edema; F32.89 Other specified depressive episodes; M51.36 Other intervertebral disc degeneration, lumbar region; S81.832A Puncture wound without foreign body, left lower leg, initial encounter; X58.XXXA Exposure to other specified factors, initial encounter
CPT/HCPCS: 36415; 36600; 71010; 71045; 80053; 80202; 81003; 82270; 82565; 82607; 82728; 82746; 82803; 83540; 83735; 84466; 85025; 86738; 87040; 87070; 87075; 87077; 87186; 87205; 87400; 87635; 87640; 87641; 87651; 87804; 90715; 94640; 94669; 94760; A4222; C9113; J0456; J1200; J1750; J1940; J1956; J2930; J3370; J7030; J7040; J7050; J7060; J7620; J7626

== ENCOUNTER 2020-04-10 14:48 | Inpatient (IN) ==
[2020-04-10] MEDS ORDERED: PROVENTIL NEB TX 0.083% 2.5MG/ 3ML IN PRN (17:19)
[2020-04-10] MEDS ORDERED: NORCO 5/325 MG TAB PO PRN (17:21)
--- NOTE | 2020-04-10 17:25 | DR.H&P ---
H&P - History & Physical for Day of: H&P Date: 04/10/20 - Chief Complaint Chief Complaint: chest congestion, osuna, leg swelling, ccc, fever and chills - History of Present Illness History of Present Illness: PT IS 49 WF DIRECT ADMIT FROM DR NAJERA OFFICE WITH FEVER, CCC WITH PRODUCTIVE COUGH. PT ADMITTED TO R/O COVID 19, HYPOXIA. TREAT BRONCHOPNEUMONIA. PT HAS PMH OF CHF, COPD, PNEUMONIA LAST MONTH, L SPINE DDD, OLENA, MDD. PT HAS TAKEN ROUND OF DOXYCYCLINE WITHOUT IMPROVEMENT. 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 - Family History Family Medical History: Hypertension - Social History Does patient currently use any type of tobacco product: No Have you used tobacco products in the last 12 months: No Type of Tobacco Use: Cigarettes Does any household member use tobacco: Yes (PT'S MOTHER SMOKES) Alcohol Use: None Drug Use: None Risks, benefits, and alternatives of opioids discussed: Yes Prescription drug monitoring program results: PDMP reviewed and no concerns identified - Medications Home Medications: ciprofloxacin [From Cipro] Allergy (Verified 03/05/20 12:32) Sulfa (Sulfonamide Antibiotics) [SULFA] Allergy (Verified 06/23/18 14:52) - Review of Systems Constitutional: Fever, Chills, Sweats Eyes: No Symptoms Reported ENT: No Symptoms Reported, Throat Pain Respiratory: Cough, Shortness of Breath, Sputum, Wheezing Cardiovascular: Edema Gastrointestinal: Nausea Genitourinary: No Symptoms Reported Musculoskeletal: Back Pain, Leg Pain Skin: Wound Neurological: Weakness - Physical Exam Vital Signs: Blood Pressure [Right Arm] 191/81 Oriented: Normal Eyes: Normal Ear: Normal Nose: Normal Throat: Normal Respiratory: Rhonchi Throughout, RLL Diminished, LLL Diminished Cardiovascular: Normal, Edema : Normal Auscultation: Bowel Sounds: Normal Palpation: Normal Tenderness: Normal Skin: Decreased Turgur, Red, Tender (LLE), Wound Musculoskeletal: Back:Thoracic, Back:Lumbar, Sensory Deficit Psychiatric: Normal Mood Description: Calm Affect: Anxious Speech Pattern: Clear, Appropriate - Assessment/Plan (1) SOB (shortness of breath) Status: Acute Plan: ADMIT COVID 19 SWAB ON ADMISSION. CXR ON ADMISSION, ABG. CBC CMP SPUTUM CULTURE. IV ATBX, RESP CONSULT, RESP THERAPY. IV HYDRATION, ANEMIA PANEL, LASIX WITH STRICT I& OS (2) CHF (congestive heart failure) Status: Acute (3) COPD exacerbation Status: Acute (4) Anemia Status: Acute (5) Hypertension Status: Acute - Allergies Allergies/Adverse Reactions: Allergies Allergy/AdvReac Type Severity Reaction Status Date / Time ciprofloxacin [From Cipro] Allergy Verified 03/05/20 12:32 Sulfa (Sulfonamide Allergy Verified 06/23/18 14:52 Antibiotics) [SULFA]
[2020-04-10 17:41] LABS: BASOPHILS # (AUTO) 0.1 X10^3/uL (0.0-0.1); BASOPHILS % (AUTO) 1.1 % (0.2-1.0); EOSINOPHILS # (AUTO) 0.1 x10^3/uL (0.0-0.2); EOSINOPHILS % (AUTO) 1.4 % (0.9-2.9); HEMATOCRIT 36.7 % (36.0-47.0); HEMOGLOBIN 11.5 g/dL (12.0-16.0); LYMPHOCYTES # (AUTO) 2.6 X10^3/uL (1.3-2.9); LYMPHOCYTES % (AUTO) 30.4 % (21.0-51.0); MEAN CORPUSCULAR HGB CONC 31.3 g/dL (33.0-35.0); MEAN CORPUSCULAR VOLUME 82.9 fL (80.0-100.0); MEAN PLATELET VOLUME 8.4 fL (7.4-11.0); MONOCYTES # (AUTO) 0.8 x10^3/uL (0.3-0.8); NEUTROPHILS # (AUTO) 4.9 x10^3/uL (2.2-4.8); NEUTROPHILS % (AUTO) 57.1 % (42.0-75.0); PLATELET COUNT 303 X10^3/uL (150.0-450.0); RED BLOOD COUNT 4.43 X10^6/uL (3.5-5.4); WHITE BLOOD COUNT 8.5 X10^3/uL (3.6-10.0)
--- NOTE | 2020-04-10 17:44 | RAD ---
HISTORYCHF, SOB, COUGH,STUDYCHEST, 1 VIEWCOMPARISONMay 2019FINDINGSThe patient is rotated. The cardiac silhouette is at the upper limits of normal. Peribronchial thickening and diffuse interstitial prominence are again noted similar to prior exam.IMPRESSIONPeribronchial thickening and diffuse interstitial prominence similar to prior exam.Electronically signed by: CYN EVANS (Apr 10, 2020 17:42:55)
[2020-04-10 17:46] LABS: ALANINE AMINOTRANSFERASE 31 Units/L (12-78); ALBUMIN 3.6 g/dL (3.4-5.0); ALKALINE PHOSPHATASE 92 Units/L (46-116); ASPARTATE AMINO TRANSFERASE 22 Units/L (15-37); BLOOD UREA NITROGEN 10 mg/dL (7-18); CALCIUM 9.2 mg/dL (8.5-10.1); CARBON DIOXIDE 31.1 mmol/L (21-32); CHLORIDE 101 mmol/L (98-107); CREATININE 0.98 mg/dL (0.55-1.02); SODIUM 140 mmol/L (136-145); TOTAL PROTEIN 8.2 g/dL (6.4-8.2); eGFR NON BLACK RACES > 60 (>60)
[2020-04-10 17:59] LABS: PLATELET MORPHOLOGY COMMENT NORMAL (NORMAL)
[2020-04-10] MEDS ORDERED: VIBRAMYCIN 100 MG in D5W 250 ML IV 250 ML IV SCH (18:00)
[2020-04-10] MEDS ORDERED: NEURONTIN CAP 300 MG PO SCH (18:00)
[2020-04-10 18:03] LABS: HYPOCHROMASIA SLIGHT
[2020-04-10 18:04] LABS: ANISOCYTOSIS 3+; TARGET CELLS SLIGHT
[2020-04-10 18:05] LABS: STOMATOCYTES SLIGHT
[2020-04-10 18:13] LABS: IRON 37 ug/dL (50-175)
[2020-04-10 18:24] LABS: ABG BASE EXCESS 7.3 mmol/L (-2.0-2.0)
[2020-04-10 18:25] LABS: ABG ALLEN TEST POS; ABG HCO3 32.6 mmol/L (22-26)
[2020-04-10] MEDS: NS 1000 ML 1,000 ML IV SCH (18:51)
[2020-04-10] MEDS: LASIX IVP SCH (18:51)
[2020-04-10] MEDS: PROzac PO SCH (19:06)
[2020-04-10] MEDS ORDERED: ZESTRIL TAB 20 MG ONE (19:06)
[2020-04-10] MEDS: ZESTRIL TAB 20 MG PO SCH (19:07)
[2020-04-10 19:53] VITALS: BMI 49.2
[2020-04-10] MEDS: ZITHROMAX INJ 500 MG VIAL 500 MG in NS 250 ML IV 250 ML IV SCH (21:16)
[2020-04-10] MEDS: REQUIP PO SCH (21:19)
[2020-04-10] MEDS ORDERED: ZOFRAN INJ 4 MG VIAL IVP PRN (21:24)
[2020-04-10] MEDS: NEURONTIN CAP 300 MG PO SCH (21:33)
[2020-04-11 06:01] LABS: ALANINE AMINOTRANSFERASE 28 Units/L (12-78); ALBUMIN 3.2 g/dL (3.4-5.0); ALKALINE PHOSPHATASE 83 Units/L (46-116); ASPARTATE AMINO TRANSFERASE 19 Units/L (15-37); BLOOD UREA NITROGEN 7 mg/dL (7-18); CALCIUM 8.7 mg/dL (8.5-10.1); CARBON DIOXIDE 30.8 mmol/L (21-32); CHLORIDE 101 mmol/L (98-107); COR CA(FOR HYPOALB) 9.3 mg/dL (8.5-10.1); COR NA(FOR HYPERGLY) 141 mmol/L (136-145); CREATININE 0.91 mg/dL (0.55-1.02); SODIUM 140 mmol/L (136-145); TOTAL PROTEIN 7.6 g/dL (6.4-8.2); eGFR NON BLACK RACES > 60 (>60)
[2020-04-11] MEDS: REQUIP PO SCH ×3 (06:08→22:00)
[2020-04-11 06:12] LABS: BASOPHILS # (AUTO) 0.1 X10^3/uL (0.0-0.1); BASOPHILS % (AUTO) 0.8 % (0.2-1.0); EOSINOPHILS # (AUTO) 0.1 x10^3/uL (0.0-0.2); EOSINOPHILS % (AUTO) 1.6 % (0.9-2.9); HEMATOCRIT 36.4 % (36.0-47.0); HEMOGLOBIN 11.4 g/dL (12.0-16.0); LYMPHOCYTES % (AUTO) 28.7 % (21.0-51.0); MEAN CORPUSCULAR HEMOGLOBIN 25.9 pg (27.0-34.0); MEAN CORPUSCULAR HGB CONC 31.3 g/dL (33.0-35.0); MEAN CORPUSCULAR VOLUME 82.6 fL (80.0-100.0); MONOCYTES # (AUTO) 0.7 x10^3/uL (0.3-0.8); MONOCYTES % (AUTO) 9.3 % (0.0-13.0); NEUTROPHILS # (AUTO) 4.3 x10^3/uL (2.2-4.8); NEUTROPHILS % (AUTO) 59.6 % (42.0-75.0); PLATELET COUNT 290 X10^3/uL (150.0-450.0); RED CELL DISTRIBUTION WIDTH 26.2 % (11.6-16.5); WHITE BLOOD COUNT 7.1 X10^3/uL (3.6-10.0)
[2020-04-11] MEDS ORDERED: MAGNESIUM SULFATE 1 GRAM/100 mL PREMIX 1 GM/100 ML BAG IV PRN (06:22)
[2020-04-11] MEDS ORDERED: K-RIDER 10 MEQ/NS 100 ML 10 MEQ/100 ML BAG IV PRN (06:22)
[2020-04-11] MEDS ORDERED: POTASSIUM CHL 60 MEQ/NS 0.45% 500 ML IV PRN (06:22)
[2020-04-11] MEDS ORDERED: KLOR-CON PO PRN (06:22)
[2020-04-11] MEDS ORDERED: POTASSIUM CHLORIDE LIQ 20 MEQ UDC PO PRN (06:22)
[2020-04-11] MEDS ORDERED: K-DUR TAB 20 MEQ PO PRN (06:22)
[2020-04-11] MEDS ORDERED: MICRO K EXTEN CAP 10 MEQ PO PRN (06:22)
[2020-04-11] MEDS ORDERED: POTASSIUM CHL 40 MEQ/NS 0.45% 500 ML IV PRN (06:22)
[2020-04-11 06:31] LABS: ANISOCYTOSIS 2+; PLATELET MORPHOLOGY COMMENT NORMAL (NORMAL)
[2020-04-11] MEDS ORDERED: KLOR-CON ONE (06:33)
[2020-04-11] MEDS ORDERED: ZESTRIL TAB 20 MG ONE (08:34)
[2020-04-11] MEDS: ZITHROMAX INJ 500 MG VIAL 500 MG in NS 250 ML IV 250 ML IV SCH (08:58)
[2020-04-11] MEDS: PROzac PO SCH (08:59)
[2020-04-11] MEDS: ZESTRIL TAB 20 MG PO SCH (08:59)
[2020-04-11] MEDS: LASIX IVP SCH ×2 (09:04→19:01)
[2020-04-11] MEDS ORDERED: SALINE 3% 15 ML NEB TX NEB ONE (10:16)
[2020-04-11] MEDS: DUONEB 0.5 MG/3 MG (3 mL) NEB SCH ×3 (12:15→21:10)
[2020-04-11] MEDS: LOVENOX INJ 40 MG SYR SC SCH (12:15)
[2020-04-11] MEDS: ROBITUSSIN DM PO SCH ×3 (14:50→21:00)
[2020-04-11] MEDS: GENTAMICIN TOPICAL OINT TOP SCH ×2 (14:51→22:00)
--- NOTE | 2020-04-11 17:49 | PCM.PROG ---
Progress Note - Progress Note for Day of Date of Exam: 04/11/20 - Subjective Subjective: PT IS 49WF ADMITTED WITH SOB, INCREASED CHEST CONGESTION, R/O COVID 19. PT WAS COVID NEGATIVE ON ADMISSION. PT IS CURRENTLY ON IV ZITHROMAX IV AND PO DOXYCYLCINE FOR COPD WITH ACUTE BRONCHITIS. PT DENIES ANY CHEST PAIN THIS AM, REPORTS INCREASED SPUTUM PRODUCTION, ADDED ROBITUSSIN AND DUO NEBS. PT GIVEN LASIX IV WITH IMPROVING LOWER EXTREMITY EDEMA. - Past Medical Family Social History Past Med/Fam/Surg Hx: No changes since H&P Allergies: Allergies ciprofloxacin [From Cipro] Allergy (Verified 03/05/20 12:32) Sulfa (Sulfonamide Antibiotics) [SULFA] Allergy (Verified 06/23/18 14:52) - Review of Systems ROS: No change since H&P - Vital Signs and I&O's Vital Signs: Temperature 99.0 F Pulse Rate [Left Brachial] 60 Pulse Rate 70 Respiratory Rate 20 Blood Pressure [Right Arm] 143/62 Blood Pressure 113/71 O2 Sat by Pulse Oximetry 97 Intake and Output: Intake & Output 04/09/20 04/10/20 04/11/20 04/12/20 11:59 11:59 11:59 11:59 Intake Total 1394 / 1394 1400 / 1400 Balance 1394 / 1394 1400 / 1400 - Physical Exam Oriented: Normal Eyes: Normal Ear: Normal Nose: Normal Throat: Normal Respiratory: Diminished, Wheezes, Rhonchi Cardiovascular: Normal, Edema : Normal Auscultation: Bowel Sounds: Normal Tenderness: Normal Skin: Decreased Turgur, Red, Tender (LLE), Wound Musculoskeletal: Back:Thoracic, Back:Lumbar, Sensory Deficit Psychiatric: Normal Mood Description: Calm Affect: Anxious Speech Pattern: Clear, Appropriate - Laboratory and Diagnostics Result Diagrams: 04/11/20 05:10 04/11/20 08:18 Labs: 04/11/20 11:00 Sputum - Expectorated Sputum - Final Laboratory WBC 7.1 X10^3/uL (3.6-10.0) 04/11/20 05:10 RBC 4.40 X10^6/uL (3.5-5.4) 04/11/20 05:10 Hgb 11.4 g/dL (12.0-16.0) L 04/11/20 05:10 Hct 36.4 % (36.0-47.0) 04/11/20 05:10 MCV 82.6 fL (80.0-100.0) 04/11/20 05:10 MCH 25.9 pg (27.0-34.0) L 04/11/20 05:10 MCHC 31.3 g/dL (33.0-35.0) L 04/11/20 05:10 RDW 26.2 % (11.6-16.5) H 04/11/20 05:10 Plt Count 290 X10^3/uL (150.0-450.0) 04/11/20 05:10 Plt Count Comment Adequate (ADEQUATE) 04/11/20 05:10 MPV 8.0 fL (7.4-11.0) 04/11/20 05:10 Neut % (Auto) 59.6 % (42.0-75.0) 04/11/20 05:10 Lymph % (Auto) 28.7 % (21.0-51.0) 04/11/20 05:10 [place] % (Auto) 9.3 % (0.0-13.0) 04/11/20 05:10 Eos % (Auto) 1.6 % (0.9-2.9) 04/11/20 05:10 Baso % (Auto) 0.8 % (0.2-1.0) 04/11/20 05:10 Neut # (Auto) 4.3 x10^3/uL (2.2-4.8) 04/11/20 05:10 Lymph # (Auto) 2.0 X10^3/uL (1.3-2.9) 04/11/20 05:10 [place] # (Auto) 0.7 x10^3/uL (0.3-0.8) 04/11/20 05:10 Eos # (Auto) 0.1 x10^3/uL (0.0-0.2) 04/11/20 05:10 Baso # (Auto) 0.1 X10^3/uL (0.0-0.1) 04/11/20 05:10 Absolute Nucleated RBC 0.0 /100WBC 04/11/20 05:10 Plt Morphology Comment Normal (NORMAL) 04/11/20 05:10 RBC Morphology Abnormal (NORMAL) A 04/11/20 05:10 Dimorphic RBCs Slight 04/10/20 17:25 Hypochromasia Slight A 04/10/20 17:25 Anisocytosis 2+ A 04/11/20 05:10 Target Cells Slight A 04/10/20 17:25 Stomatocytes Slight A 04/10/20 17:25 Sample Site [place]rad 04/10/20 18:14 ABG pH 7.440 (7.35-7.45) 04/10/20 18:14 ABG pCO2 48.0 mmHg (35.0-45.0) H 04/10/20 18:14 ABG pO2 64.0 mmHg (80.0-100.0) L 04/10/20 18:14 ABG HCO3 32.6 mmol/L (22-26) H* 04/10/20 18:14 ABG O2 Saturation 93.0 % (90-100) 04/10/20 18:14 ABG Base Excess 7.3 mmol/L (-2.0-2.0) H 04/10/20 18:14 Jay Test Pos 04/10/20 18:14 A-a Gradient 26.0 mmHg 04/10/20 18:14 FiO2 21.0 04/10/20 18:14 Blood Gas Comments Debbie well ah 04/10/20 18:14 Sodium 140 mmol/L (136-145) 04/11/20 05:10 Corrected Sodium 141 mmol/L (136-145) 04/11/20 05:10 Potassium 4.0 mmol/L (3.5-5.1) 04/11/20 08:18 Chloride 101 mmol/L (98-107) 04/11/20 05:10 Carbon Dioxide 30.8 mmol/L (21-32) 04/11/20 05:10 BUN 7 mg/dL (7-18) 04/11/20 05:10 Creatinine 0.91 mg/dL (0.55-1.02) 04/11/20 05:10 Est GFR (MDRD) Af Amer > 60 (>60) 04/11/20 05:10 Est GFR (MDRD) Non-Af > 60 (>60) 04/11/20 05:10 Glucose 135 mg/dL (65-99) H 04/11/20 05:10 Calcium 8.7 mg/dL (8.5-10.1) 04/11/20 05:10 Corrected Calcium 9.3 mg/dL (8.5-10.1) 04/11/20 05:10 Magnesium 2.0 mg/dL (1.7-2.9) 04/11/20 05:10 Iron 37 ug/dL (50-175) L 04/10/20 17:25 Transferrin 282 mg/dL (202-364) 04/10/20 17:25 Ferritin 55 ng/mL (8-252) 04/10/20 17:25 Total Bilirubin 0.20 mg/dL (0.2-1.0) 04/11/20 05:10 AST 19 Units/L (15-37) 04/11/20 05:10 ALT 28 Units/L (12-78) 04/11/20 05:10 Alkaline Phosphatase 83 Units/L (46-116) 04/11/20 05:10 Total Protein 7.6 g/dL (6.4-8.2) 04/11/20 05:10 Albumin 3.2 g/dL (3.4-5.0) L 04/11/20 05:10 Globulin 4.4 g/dL (2.5-4.5) 04/11/20 05:10 Albumin/Globulin Ratio 0.7 Ratio (1.1-2.1) L 04/11/20 05:10 Vitamin B12 546 pg/mL (193-986) 04/10/20 17:25 Folate 17.0 ng/mL (>8.6) 04/10/20 17:25 SARS-CoV-2 (PCR) Negative (NEGATIVE) 04/10/20 17:34 - Plan (1) SOB (shortness of breath) Status: Acute Plan: COVID 19 SWAB ON ADMISSION. AM CXR ABG. CBC CMP AM, SPUTUM CULTURE UNCOLLECTED. IV ATBX, RESP CONSULT, RESP THERAPY. IV HYDRATION, ANEMIA PANEL, LASIX WITH STRICT I& OS (2) CHF (congestive heart failure) Status: Acute (3) COPD exacerbation Status: Inactive (4) Anemia Status: Inactive (5) Hypertension Status: Chronic
[2020-04-11] MEDS: VIBRAMYCIN PO SCH ×2 (19:00→21:00)
[2020-04-11] MEDS: NS 1000 ML 1,000 ML IV SCH (19:03)
[2020-04-11] MEDS: NEURONTIN CAP 300 MG PO SCH (20:53)
[2020-04-12] MEDS: REQUIP PO SCH ×3 (05:56→21:12)
[2020-04-12] MEDS: GENTAMICIN TOPICAL OINT TOP SCH ×3 (05:56→22:00)
[2020-04-12 06:16] LABS: BASOPHILS # (AUTO) 0.1 X10^3/uL (0.0-0.1); BASOPHILS % (AUTO) 1.4 % (0.2-1.0); EOSINOPHILS # (AUTO) 0.1 x10^3/uL (0.0-0.2); EOSINOPHILS % (AUTO) 1.3 % (0.9-2.9); HEMATOCRIT 38.5 % (36.0-47.0); HEMOGLOBIN 12.1 g/dL (12.0-16.0); LYMPHOCYTES # (AUTO) 2.3 X10^3/uL (1.3-2.9); LYMPHOCYTES % (AUTO) 32.6 % (21.0-51.0); MEAN CORPUSCULAR HGB CONC 31.4 g/dL (33.0-35.0); MEAN PLATELET VOLUME 8.2 fL (7.4-11.0); MONOCYTES # (AUTO) 0.7 x10^3/uL (0.3-0.8); MONOCYTES % (AUTO) 10.3 % (0.0-13.0); NEUTROPHILS # (AUTO) 3.9 x10^3/uL (2.2-4.8); NEUTROPHILS % (AUTO) 54.4 % (42.0-75.0); PLATELET COUNT 284 X10^3/uL (150.0-450.0); RED BLOOD COUNT 4.64 X10^6/uL (3.5-5.4); RED CELL DISTRIBUTION WIDTH 25.4 % (11.6-16.5); WHITE BLOOD COUNT 7.1 X10^3/uL (3.6-10.0)
[2020-04-12 06:25] LABS: ALANINE AMINOTRANSFERASE 29 Units/L (12-78); ALBUMIN 3.5 g/dL (3.4-5.0); ALKALINE PHOSPHATASE 94 Units/L (46-116); ASPARTATE AMINO TRANSFERASE 27 Units/L (15-37); BLOOD UREA NITROGEN 10 mg/dL (7-18); CALCIUM 8.7 mg/dL (8.5-10.1); CARBON DIOXIDE 30.3 mmol/L (21-32); CHLORIDE 97 mmol/L (98-107); CREATININE 0.89 mg/dL (0.55-1.02); SODIUM 135 mmol/L (136-145); TOTAL PROTEIN 8.2 g/dL (6.4-8.2); eGFR NON BLACK RACES > 60 (>60)
[2020-04-12 07:13] LABS: ANISOCYTOSIS 2+
[2020-04-12 07:16] LABS: PLATELET MORPHOLOGY COMMENT NORMAL (NORMAL)
[2020-04-12] MEDS ORDERED: ZESTRIL TAB 20 MG ONE (08:31)
[2020-04-12] MEDS: DUONEB 0.5 MG/3 MG (3 mL) NEB SCH ×4 (08:51→20:40)
[2020-04-12] MEDS: LASIX IVP SCH ×2 (09:38→17:40)
[2020-04-12] MEDS: ZITHROMAX INJ 500 MG VIAL 500 MG in NS 250 ML IV 250 ML IV SCH (09:39)
[2020-04-12] MEDS: PROzac PO SCH (09:39)
[2020-04-12] MEDS: VIBRAMYCIN PO SCH ×2 (09:39→21:12)
[2020-04-12] MEDS: ROBITUSSIN DM PO SCH ×4 (09:40→21:11)
[2020-04-12] MEDS: LOVENOX INJ 40 MG SYR SC SCH (09:40)
[2020-04-12] MEDS: ZESTRIL TAB 20 MG PO SCH (09:41)
[2020-04-12 10:28] LABS: ABG BASE EXCESS 8.4 mmol/L (-2.0-2.0)
[2020-04-12 10:29] LABS: ABG ALLEN TEST POS
[2020-04-12] MEDS: NS 1000 ML 1,000 ML IV SCH ×2 (10:58→17:27)
[2020-04-12] MEDS: NEURONTIN CAP 300 MG PO SCH (21:12)
[2020-04-13] MEDS: REQUIP PO SCH (06:21)
[2020-04-13] MEDS: GENTAMICIN TOPICAL OINT TOP SCH (06:21)
[2020-04-13] MEDS ORDERED: ZESTRIL TAB 20 MG ONE (07:29)
[2020-04-13] MEDS: ZITHROMAX INJ 500 MG VIAL 500 MG in NS 250 ML IV 250 ML IV SCH (08:39)
[2020-04-13] MEDS: LASIX IVP SCH (08:42)
[2020-04-13] MEDS: LOVENOX INJ 40 MG SYR SC SCH (08:45)
[2020-04-13] MEDS: VIBRAMYCIN PO SCH (08:46)
[2020-04-13] MEDS: PROzac PO SCH (08:46)
[2020-04-13] MEDS: ROBITUSSIN DM PO SCH (08:46)
[2020-04-13] MEDS: ZESTRIL TAB 20 MG PO SCH (08:47)
[2020-04-13] MEDS: DUONEB 0.5 MG/3 MG (3 mL) NEB SCH (09:09)
[2020-04-13 10:38] VITALS: BP 176/84
== END 2020-04-13 11:45 | disposition home or self-care (01) | DRG 194 ==
LOC: OBS 16:08 → MED/SURG 19:08
PROVIDERS: ADMIT Internal Medicine; ATTEND Internal Medicine
DX: B95.62 Methicillin resistant Staphylococcus aureus infection as the cause of diseases classified elsewhere; J18.8 Other pneumonia, unspecified organism; I11.0 Hypertensive heart disease with heart failure; M51.36 Other intervertebral disc degeneration, lumbar region; I50.9 Heart failure, unspecified; K21.9 Gastro-esophageal reflux disease without esophagitis; X58.XXXA Exposure to other specified factors, initial encounter; F41.8 Other specified anxiety disorders; R60.0 Localized edema; G25.81 Restless legs syndrome; Z11.59 Encounter for screening for other viral diseases; D64.9 Anemia, unspecified; S80.922A Unspecified superficial injury of left lower leg, initial encounter; J44.1 Chronic obstructive pulmonary disease with (acute) exacerbation
CPT/HCPCS: 36415; 36600; 71010; 71045; 80053; 82607; 82728; 82746; 82803; 83540; 83735; 84132; 84466; 85025; 87070; 87205; 87635; 93005; 93306; 94640; 94760; 94762; A4216; J0456; J1650; J1940; J7030; J7050; J7620

== ENCOUNTER 2021-04-25 13:09 | Inpatient (IN) ==
[2021-04-25] MEDS ORDERED: PHARMACY CONSULT - VANCOMYCIN XX SCH (17:18)
[2021-04-25] MEDS: PULMICORT NEB TX 0.5 MG NEB SCH ×2 (17:36→20:15)
--- NOTE | 2021-04-25 17:51 | DR.H&P ---
H&P - History & Physical for Day of: H&P Date: 04/25/21 - Chief Complaint Chief Complaint: swelling to lower stomach with redness, tender and open wound &. [facility] - History of Present Illness History of Present Illness: PT IS 50 WF DIRECT ADMIT FROM DR WEISS OFFICE WITH LOWER ABDOMINAL CELLULITIS WITH OPEN WOUNDS. PT HAS HAD DIFFUSE LOWER ABD SWELLING WITH REDNESS AND NEW OPEN WOUNDS NOT IMPROVED WITH PO DOXYCYCLINE 10 DAYS. PT ALSO USING TOPICAL MUPIRCION OINTMENT. PT HAS HAD COPD EXACERBATION ONSET ON 04/20. CURRENTLY TAKING PO ZITHROMAX FOR THAT AND PO NYSTATIN FOR ORAL THRUSH. PT ADMITTED FOR TREATMENT OF ACUTE ILLNESS. PT HAS PMH OF HTN, COPD, LSPINE DDD, GERD WITH GASTRITIS, ANEMIA. 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 - Family History Family Medical History: Hypertension - Social History Does patient currently use any type of tobacco product: Yes Have you used tobacco products in the last 12 months: Yes Type of Tobacco Use: Cigarettes Does any household member use tobacco: No Alcohol Use: None Drug Use: None Risks, benefits, and alternatives of opioids discussed: No Prescription drug monitoring program results: PDMP reviewed and no concerns identified - Medications Home Medications: ciprofloxacin [From Cipro] Allergy (Verified 03/05/20 12:32) Sulfa (Sulfonamide Antibiotics) [SULFA] Allergy (Verified 06/23/18 14:52) - Review of Systems Constitutional: Chills, Malaise Eyes: No Symptoms Reported ENT: No Symptoms Reported Respiratory: Cough, Shortness of Breath, SOB with Excertion, Wheezing Cardiovascular: Edema Gastrointestinal: Nausea Genitourinary: Frequency Musculoskeletal: Back Pain, Leg Pain Skin: Rash, Wound Neurological: No Symptoms Reported - Physical Exam Vital Signs: Blood Pressure [Right Arm] 176/84 Oriented: Normal Eyes: Normal Ear: Normal Nose: Normal Throat: Dry Respiratory: Rhonchi Throughout, Wheezes Throughout Cardiovascular: Normal, Edema : Normal Auscultation: Bowel Sounds: Normal Palpation: Other (DIFFUSE DISTENTION) Skin: Decreased Turg[place], Rash, Red, Tender, Wound (LOCALIZED TO LOWER ABDOMEN) Musculoskeletal: Back:Thoracic, Back:Lumbar Psychiatric: Anxiety Mood Description: Anxious Affect: Anxious Speech Pattern: Clear, Appropriate - Assessment/Plan (1) Abdominal wall cellulitis Status: Acute Plan: ADMIT, BLOOD AND WOUND CULTURE ON ADMISSION. IV ATBX THERAPY, IV HYDRATION. ANEMIA PANEL, RESP CONSULT. PRN PAIN CONTROL, WOUND CARE. NYSTATIN AND DIFLUCAN, CXR ON ADMISSION, PRN SUPPLEMENTAL O2 (2) Open wound Status: Acute (3) COPD (chronic obstructive pulmonary disease) Qualifiers: COPD type: COPD with acute exacerbation Qualified Code(s): J44.1 - Chronic obstructive pulmonary disease with (acute) exacerbation Status: Acute (4) Thrush, oral Status: Acute (5) Hypertension Status: Chronic - Allergies Allergies/Adverse Reactions: Allergies Allergy/AdvReac Type Severity Reaction Status Date / Time ciprofloxacin [From Cipro] Allergy Verified 03/05/20 12:32 Sulfa (Sulfonamide Allergy Verified 06/23/18 14:52 Antibiotics) [SULFA]
[2021-04-25] MEDS: DUONEB 0.5 MG/3 MG (3 mL) NEB SCH ×2 (18:00→20:15)
[2021-04-25 18:17] LABS: BASOPHILS # (AUTO) 0.1 X10^3/uL (0.0-0.1); BASOPHILS % (AUTO) 0.8 % (0.2-1.0); EOSINOPHILS # (AUTO) 0.1 x10^3/uL (0.0-0.2); EOSINOPHILS % (AUTO) 0.7 % (0.9-2.9); HEMATOCRIT 38.8 % (36.0-47.0); HEMOGLOBIN 12.3 g/dL (12.0-16.0); LYMPHOCYTES # (AUTO) 1.6 X10^3/uL (1.3-2.9); LYMPHOCYTES % (AUTO) 18.1 % (21.0-51.0); MEAN CORPUSCULAR HEMOGLOBIN 26.1 pg (27.0-34.0); MEAN CORPUSCULAR HGB CONC 31.6 g/dL (33.0-35.0); MEAN CORPUSCULAR VOLUME 82.7 fL (80.0-100.0); MEAN PLATELET VOLUME 8.4 fL (7.4-11.0); MONOCYTES # (AUTO) 0.9 x10^3/uL (0.3-0.8); MONOCYTES % (AUTO) 10.1 % (0.0-13.0); NEUTROPHILS # (AUTO) 6.4 x10^3/uL (2.2-4.8); NEUTROPHILS % (AUTO) 70.3 % (42.0-75.0); PLATELET COUNT 340 X10^3/uL (150.0-450.0); WHITE BLOOD COUNT 9.1 X10^3/uL (3.6-10.0)
[2021-04-25 18:27] LABS: ALANINE AMINOTRANSFERASE 38 Units/L (12-78); ALKALINE PHOSPHATASE 114 Units/L (46-116); ASPARTATE AMINO TRANSFERASE 37 Units/L (15-37); BLOOD UREA NITROGEN 8 mg/dL (7-18); CALCIUM 8.7 mg/dL (8.5-10.1); CARBON DIOXIDE 32.1 mmol/L (21-32); CHLORIDE 105 mmol/L (98-107); COR CA(FOR HYPOALB) 9.5 mg/dL (8.5-10.1); COR NA(FOR HYPERGLY) 141 mmol/L (136-145); SODIUM 141 mmol/L (136-145); TOTAL PROTEIN 7.9 g/dL (6.4-8.2); eGFR NON BLACK RACES > 60 (>60)
[2021-04-25 18:27] LABS: BILIRUBIN,URINE NEGATIVE (NEGATIVE); BLOOD/HEMOGLOBIN,URINE NEGATIVE (NEGATIVE); GLUCOSE, URINE NEGATIVE (NEGATIVE); KETONES,URINE NEGATIVE (NEGATIVE); LEUKOCYTE ESTERASE ,URINE NEGATIVE (NEGATIVE); NITRITES,URINE NEGATIVE (NEGATIVE); PROTEIN,URINE NEGATIVE (NEGATIVE); UROBILINOGEN,URINE NORMAL (NORMAL)
[2021-04-25] MEDS: NYSTATIN POWDER TOP SCH (18:28)
[2021-04-25] MEDS: NYSTATIN SUSP MT SCH ×2 (18:28→21:11)
[2021-04-25 18:32] LABS: APPEARANCE,URINE CLEAR (CLEAR); COLOR,URINE STRAW (YELLOW)
[2021-04-25 18:34] LABS: FREE T4 (FREE THYROXINE) 0.97 ng/dL (0.76-1.46); MAGNESIUM 1.9 mg/dL (1.7-2.9); TSH (3RD GENERATION) 1.423 uIU/mL (0.358-3.74)
[2021-04-25 18:40] LABS: HEMOGLOBIN A1C 5.9 %
--- NOTE | 2021-04-25 19:08 | RAD ---
CHEST, 1 VIEWHISTORY:SOB, COPDStudy: Single view of the chest.Comparison:NoneFindings:Cardiomegaly and pulmonary vascular congestion. No focal consolidations, pleural effusions or pneumothorax. Osseous structures demonstrate no acute abnormality.IMPRESSION:1. Cardiomegaly and pulmonary vascular congestion.Electronically signed by: CHARLIE LIU (Apr 25, 2021 19:05:28)
[2021-04-25] MEDS: K-DUR TAB 20 MEQ PO SCH (20:22)
[2021-04-25] MEDS: DIFLUCAN PO SCH (20:22)
[2021-04-25] MEDS: NORCO 5/325 MG TAB PO PRN (20:23)
[2021-04-25] MEDS: REQUIP PO SCH (21:12)
[2021-04-25] MEDS: ZESTRIL TAB 40 MG PO SCH (21:12)
[2021-04-25] MEDS: PROTONIX INJ 40 MG VIAL IVP SCH (21:13)
[2021-04-25] MEDS: VANCOMYCIN IV *PREMIX 1.5 G/300 ML BAG 1.5 G/300 ML PIGGYBACK IV SCH (22:15)
[2021-04-25] MEDS ORDERED: NS 100 ML IV 100 ML ONE (22:20)
[2021-04-26] MEDS: NORCO 5/325 MG TAB PO PRN ×3 (03:45→23:00)
[2021-04-26 06:02] LABS: CHOL/HDL RATIO 3.4 (0.0-5.0)
[2021-04-26] MEDS: DUONEB 0.5 MG/3 MG (3 mL) NEB SCH ×4 (08:00→21:19)
[2021-04-26] MEDS: PULMICORT NEB TX 0.5 MG NEB SCH ×2 (08:00→21:19)
[2021-04-26 08:52] LABS: BASOPHILS # (AUTO) 0.1 X10^3/uL (0.0-0.1); BASOPHILS % (AUTO) 0.9 % (0.2-1.0); EOSINOPHILS # (AUTO) 0.1 x10^3/uL (0.0-0.2); HEMATOCRIT 38.2 % (36.0-47.0); HEMOGLOBIN 12.2 g/dL (12.0-16.0); LYMPHOCYTES # (AUTO) 2.2 X10^3/uL (1.3-2.9); LYMPHOCYTES % (AUTO) 27.7 % (21.0-51.0); MEAN CORPUSCULAR HEMOGLOBIN 26.6 pg (27.0-34.0); MEAN CORPUSCULAR VOLUME 83.3 fL (80.0-100.0); MEAN PLATELET VOLUME 8.8 fL (7.4-11.0); MONOCYTES # (AUTO) 1.2 x10^3/uL (0.3-0.8); MONOCYTES % (AUTO) 14.9 % (0.0-13.0); NEUTROPHILS # (AUTO) 4.5 x10^3/uL (2.2-4.8); NEUTROPHILS % (AUTO) 55.5 % (42.0-75.0); PLATELET COUNT 335 X10^3/uL (150.0-450.0); RED BLOOD COUNT 4.59 X10^6/uL (3.5-5.4)
[2021-04-26] MEDS ORDERED: LASIX IVP SCH (09:00)
[2021-04-26 09:01] LABS: ALANINE AMINOTRANSFERASE 45 Units/L (12-78); ALKALINE PHOSPHATASE 132 Units/L (46-116); ASPARTATE AMINO TRANSFERASE 51 Units/L (15-37); BLOOD UREA NITROGEN 12 mg/dL (7-18); CALCIUM 8.4 mg/dL (8.5-10.1); CARBON DIOXIDE 30.5 mmol/L (21-32); CHLORIDE 104 mmol/L (98-107); COR CA(FOR HYPOALB) 9.2 mg/dL (8.5-10.1); CREATININE 0.97 mg/dL (0.55-1.02); SODIUM 145 mmol/L (136-145); TOTAL PROTEIN 7.6 g/dL (6.4-8.2); eGFR NON BLACK RACES > 60 (>60)
[2021-04-26] MEDS: DIFLUCAN PO SCH (09:55)
[2021-04-26] MEDS: PROTONIX INJ 40 MG VIAL IVP SCH ×2 (09:55→21:31)
[2021-04-26] MEDS: NYSTATIN SUSP MT SCH ×3 (09:56→23:00)
[2021-04-26] MEDS: ZESTRIL TAB 40 MG PO SCH (09:57)
[2021-04-26] MEDS: K-DUR TAB 20 MEQ PO SCH ×3 (09:57→21:32)
[2021-04-26] MEDS: VANCOMYCIN IV *PREMIX 1.5 G/300 ML BAG 1.5 G/300 ML PIGGYBACK IV SCH ×2 (10:00→21:31)
[2021-04-26] MEDS ORDERED: NS 100 ML IV 100 ML with VENOFER 400 MG IV NR ×2 (11:00)
[2021-04-26] MEDS: NYSTATIN POWDER TOP SCH ×2 (11:07→21:45)
[2021-04-26 12:37] VITALS: BMI 45.8
[2021-04-26] MEDS: LASIX IVP SCH (17:47)
[2021-04-26] MEDS ORDERED: SALINE 0.9% 3 ML NEB TX ONE (20:13)
[2021-04-26] MEDS: ROBITUSSIN DM PO SCH ×2 (21:31→21:32)
[2021-04-26] MEDS: REQUIP PO SCH (21:32)
[2021-04-26] MEDS ORDERED: NS 100 ML IV 100 ML ONE (22:28)
[2021-04-27] MEDS: ULTRAM PO PRN ×3 (00:36→23:15)
[2021-04-27 06:59] LABS: BASOPHILS # (AUTO) 0.1 X10^3/uL (0.0-0.1); BASOPHILS % (AUTO) 0.6 % (0.2-1.0); EOSINOPHILS # (AUTO) 0.1 x10^3/uL (0.0-0.2); EOSINOPHILS % (AUTO) 1.3 % (0.9-2.9); HEMATOCRIT 38.3 % (36.0-47.0); HEMOGLOBIN 12.2 g/dL (12.0-16.0); LYMPHOCYTES # (AUTO) 1.6 X10^3/uL (1.3-2.9); MEAN CORPUSCULAR HEMOGLOBIN 26.3 pg (27.0-34.0); MEAN CORPUSCULAR HGB CONC 31.9 g/dL (33.0-35.0); MEAN CORPUSCULAR VOLUME 82.7 fL (80.0-100.0); MEAN PLATELET VOLUME 8.3 fL (7.4-11.0); MONOCYTES % (AUTO) 12.5 % (0.0-13.0); NEUTROPHILS # (AUTO) 5.2 x10^3/uL (2.2-4.8); NEUTROPHILS % (AUTO) 65.6 % (42.0-75.0); PLATELET COUNT 370 X10^3/uL (150.0-450.0); RED BLOOD COUNT 4.63 X10^6/uL (3.5-5.4); WHITE BLOOD COUNT 7.9 X10^3/uL (3.6-10.0)
[2021-04-27 07:05] LABS: ALANINE AMINOTRANSFERASE 56 Units/L (12-78); ALBUMIN 3.1 g/dL (3.4-5.0); ALKALINE PHOSPHATASE 160 Units/L (46-116); ASPARTATE AMINO TRANSFERASE 54 Units/L (15-37); BLOOD UREA NITROGEN 9 mg/dL (7-18); CALCIUM 8.3 mg/dL (8.5-10.1); CHLORIDE 105 mmol/L (98-107); CREATININE 0.93 mg/dL (0.55-1.02); SODIUM 145 mmol/L (136-145); TOTAL PROTEIN 7.8 g/dL (6.4-8.2); eGFR NON BLACK RACES > 60 (>60)
[2021-04-27 08:49] LABS: CREATININE 0.91 mg/dL (0.55-1.02); VANCOMYCIN,TROUGH 16.3 ug/mL (15-20)
[2021-04-27] MEDS: VANCOMYCIN IV *PREMIX 1.5 G/300 ML BAG 1.5 G/300 ML PIGGYBACK IV SCH (09:13)
[2021-04-27] MEDS: PROTONIX INJ 40 MG VIAL IVP SCH ×2 (09:13→21:16)
[2021-04-27] MEDS: NYSTATIN SUSP MT SCH ×6 (09:13→21:18)
[2021-04-27] MEDS: NYSTATIN POWDER TOP SCH ×2 (09:13→21:27)
[2021-04-27] MEDS: DIFLUCAN PO SCH (09:15)
[2021-04-27] MEDS: ZESTRIL TAB 40 MG PO SCH (09:15)
[2021-04-27] MEDS: ROBITUSSIN DM PO SCH ×5 (09:15→21:16)
[2021-04-27] MEDS: HEMOCYTE-PLUS PO SCH ×2 (09:15→19:07)
[2021-04-27] MEDS: NORCO 5/325 MG TAB PO PRN ×2 (09:15→21:15)
[2021-04-27] MEDS: LASIX IVP SCH (09:16)
[2021-04-27] MEDS: DUONEB 0.5 MG/3 MG (3 mL) NEB SCH ×4 (09:21→20:25)
[2021-04-27] MEDS: PULMICORT NEB TX 0.5 MG NEB SCH ×2 (09:21→20:25)
[2021-04-27] MEDS: MUCOMYST (RESPIRATORY USE ONLY) NEB SCH ×4 (11:01→20:25)
--- NOTE | 2021-04-27 18:27 | PCM.PROG ---
Progress Note - Progress Note for Day of Date of Exam: 04/27/21 - Subjective Subjective: IS A 50 YEAR OLD PATIENT OF . SHE WAS ADMITTED FOR TREATMENT OF LOWER ABDOMINAL WALL CELLULITIS WITH SMALL OPEN WOUND. SHE ALSO HAD COPD EXACERBATION WITH ACUTE BRONCHITIS. TODAY, SHE IS ALERT AND ORIENTED, AMBULATING IN ROOM ON MORNING ROUNDS. SHE ADMITS TO COUGH AND SHORTNESS OF BREATH THIS MORNING. ON EXAMINATION, HEART IS REGULAR IN RATE AND RHYTHM. BILATERAL LUNGS ARE NOTED WITH SCATTERED WHEEZING THROUGHOUT. ABDOMEN IS ROUND, SOFT, AND NON-TENDER. THERE IS LIGHT REDNESS NOTED TO LOWER ABDOMEN. THERE IS A SCABBED OVER WOUND THAT IS ABOUT INCH. NORMAL BOWEL SOUND NOTED IN ALL QUADRANTS. THERE IS + PITTING EDEMA NOTED TO BILATERAL LOWER EXTREMITIES. HER VITALS THIS MORNING ARE: 98.0-66-24-90%-179/76. LABS WERE OBTAINED. ABNORMAL LAB VALUES INCLUDE THE FOLLOWING: CARBON DIOXIDE 36.0, GLUCOSE 102, CALCIUM 8.3, TOTAL BILI 0.10, AST 54, ALK PHOS 160, ALBUMIN 3.1, GLOBULIN 4.7. SPUTUM CULTURE POSITIVE FOR KLEBSIELLA OXYTOCA. BLOOD CULTURES ARE PENDING. SHE IS CURRENTLY RECEIVING VANCOMYCIN 1.5G IV Q12H, DUONEBS QID, PULMICORT NEBS BID, DIFLUCAN 100MG PO DAILY, ROBITUSSIN DM 10ML PO QID, PROTONIX 40MG IV BID, NORCO PRN, LISINOPRIL, HEMOCYTE PLUS, NYSTATIN POWDER AND SUSPENTION, REQUIP, AND ULTRAM. TODAY, WE WILL ADD INVANZ 1G IV DAILY AND MUCOMYST IN NEB [place] QID. OTHERWISE, WE WILL FOLLOW UP WITH AM LABS AND CONTINUE TO MONITOR. TIME SPENT ON CLINICAL ASSESSMENT, REVIEWING LABS AND IMAGING, DECISION MAKING, AND DOCUMENTATION WAS GREATER THAN 45 MINUTES. - Past Medical Family Social History Past Med/Fam/Surg Hx: No changes since H&P Allergies: Allergies ciprofloxacin [From Cipro] Allergy (Verified 03/05/20 12:32) Sulfa (Sulfonamide Antibiotics) [SULFA] Allergy (Verified 06/23/18 14:52) - Review of Systems ROS: No change since H&P - Vital Signs and I&O's Vital Signs: Temperature 98.5 F Pulse Rate [Bilateral Radial] 64 Pulse Rate 70 Respiratory Rate 22 Blood Pressure [Right Arm] 159/74 Blood Pressure 113/71 O2 Sat by Pulse Oximetry 93 Intake and Output: Intake & Output 04/25/21 04/26/21 04/27/21 04/28/21 11:59 11:59 11:59 11:59 Intake Total 2541 / 2541 5760 / 5760 1809 Balance 2541 / 2541 5760 / 5760 1809 - Physical Exam Oriented: Normal Eyes: Normal Ear: Normal Nose: Normal Throat: Dry Respiratory: Generalized, Wheezes Cardiovascular: Normal, Edema (BLE 1+ PITTING EDEMA ) : Normal Auscultation: Bowel Sounds: Normal Palpation: Normal Tenderness: Normal Skin: Decreased Turgur, Rash, Red, Tender, Wound (LOCALIZED TO LOWER ABDOMEN) Musculoskeletal: Back:Thoracic, Back:Lumbar Psychiatric: Anxiety Mood Description: Anxious Affect: Anxious Speech Pattern: Clear, Appropriate - Laboratory and Diagnostics Result Diagrams: 04/27/21 05:55 04/27/21 08:12 Labs: 04/25/21 18:05 Urine,Clean Catch Urine Culture - Final 04/25/21 18:40 Sputum - Expectorated Sputum Sputum Culture - Final Klebsiella Oxytoca 04/25/21 18:40 Sputum - Expectorated Sputum - Final 04/25/21 17:32 Blood Blood Culture - Preliminary 04/25/21 17:39 Blood Blood Culture - Preliminary Laboratory WBC 7.9 X10^3/uL (3.6-10.0) 04/27/21 05:55 RBC 4.63 X10^6/uL (3.5-5.4) 04/27/21 05:55 Hgb 12.2 g/dL (12.0-16.0) 04/27/21 05:55 Hct 38.3 % (36.0-47.0) 04/27/21 05:55 MCV 82.7 fL (80.0-100.0) 04/27/21 05:55 MCH 26.3 pg (27.0-34.0) L 04/27/21 05:55 MCHC 31.9 g/dL (33.0-35.0) L 04/27/21 05:55 RDW 16.0 % (11.6-16.5) 04/27/21 05:55 Plt Count 370 X10^3/uL (150.0-450.0) 04/27/21 05:55 MPV 8.3 fL (7.4-11.0) 04/27/21 05:55 Neut % (Auto) 65.6 % (42.0-75.0) 04/27/21 05:55 Lymph % (Auto) 20.0 % (21.0-51.0) L 04/27/21 05:55 [place] % (Auto) 12.5 % (0.0-13.0) 04/27/21 05:55 Eos % (Auto) 1.3 % (0.9-2.9) 04/27/21 05:55 Baso % (Auto) 0.6 % (0.2-1.0) 04/27/21 05:55 Neut # (Auto) 5.2 x10^3/uL (2.2-4.8) H 04/27/21 05:55 Lymph # (Auto) 1.6 X10^3/uL (1.3-2.9) 04/27/21 05:55 [place] # (Auto) 1.0 x10^3/uL (0.3-0.8) H 04/27/21 05:55 Eos # (Auto) 0.1 x10^3/uL (0.0-0.2) 04/27/21 05:55 Baso # (Auto) 0.1 X10^3/uL (0.0-0.1) 04/27/21 05:55 Absolute Nucleated RBC 0.1 /100WBC 04/27/21 05:55 Sodium 145 mmol/L (136-145) 04/27/21 05:55 Corrected Sodium TNP 04/27/21 05:55 Potassium 4.0 mmol/L (3.5-5.1) 04/27/21 05:55 Chloride 105 mmol/L (98-107) 04/27/21 05:55 Carbon Dioxide 36.0 mmol/L (21-32) H 04/27/21 05:55 BUN 9 mg/dL (7-18) 04/27/21 05:55 Creatinine 0.91 mg/dL (0.55-1.02) 04/27/21 08:12 Est GFR (MDRD) Af Amer > 60 (>60) 04/27/21 05:55 Est GFR (MDRD) Non-Af > 60 (>60) 04/27/21 05:55 Glucose 102 mg/dL (65-99) H 04/27/21 05:55 Hemoglobin A1c 5.9 % 04/25/21 17:32 Calcium 8.3 mg/dL (8.5-10.1) L 04/27/21 05:55 Corrected Calcium 9.0 mg/dL (8.5-10.1) 04/27/21 05:55 Magnesium 1.9 mg/dL (1.7-2.9) 04/25/21 17:32 Iron 15 ug/dL (50-175) L 04/25/21 17:32 Transferrin 350 mg/dL (202-364) 04/25/21 17:32 Ferritin 11 ng/mL (8-252) 04/25/21 17:32 Total Bilirubin 0.10 mg/dL (0.2-1.0) L 04/27/21 05:55 AST 54 Units/L (15-37) H 04/27/21 05:55 ALT 56 Units/L (12-78) 04/27/21 05:55 Alkaline Phosphatase 160 Units/L (46-116) H 04/27/21 05:55 Total Protein 7.8 g/dL (6.4-8.2) 04/27/21 05:55 Albumin 3.1 g/dL (3.4-5.0) L 04/27/21 05:55 Globulin 4.7 g/dL (2.5-4.5) H 04/27/21 05:55 Albumin/Globulin Ratio 0.7 Ratio (1.1-2.1) L 04/27/21 05:55 Triglycerides 122 mg/dL (0-150) 04/26/21 04:12 Cholesterol 124 mg/dL (0-200) 04/26/21 04:12 LDL Cholesterol, Calc 64 mg/dL (0-100) 04/26/21 04:12 HDL Cholesterol 36 mg/dL (40-60) L 04/26/21 04:12 Cholesterol/HDL Ratio 3.4 (0.0-5.0) 04/26/21 04:12 Vitamin B12 1234 pg/mL (193-986) H 04/25/21 17:32 Folate 8.9 ng/mL (>8.6) 04/25/21 17:32 Free T4 0.97 ng/dL (0.76-1.46) 04/25/21 17:32 TSH 3rd Generation 1.423 uIU/mL (0.358-3.74) 04/25/21 17:32 Specimen Type Clean catch urine 04/25/21 18:05 Urine Color Straw (YELLOW) 04/25/21 18:05 Urine Appearance Clear (CLEAR) 04/25/21 18:05 Urine pH 7.0 (5.0 - 8.0) 04/25/21 18:05 Ur Specific [place] 1.015 (1.000-1.030) 04/25/21 18:05 Urine Protein Negative (NEGATIVE) 04/25/21 18:05 Urine Glucose (UA) Negative (NEGATIVE) 04/25/21 18:05 Urine Ketones Negative (NEGATIVE) 04/25/21 18:05 Urine Occult Blood Negative (NEGATIVE) 04/25/21 18:05 Urine Nitrite Negative (NEGATIVE) 04/25/21 18:05 Urine Bilirubin Negative (NEGATIVE) 04/25/21 18:05 Urine Urobilinogen Normal (NORMAL) 04/25/21 18:05 Ur Leukocyte Esterase Negative (NEGATIVE) 04/25/21 18:05 Vancomycin Trough 16.3 ug/mL (15-20) 04/27/21 08:12 SARS CoV-2 RNA Rapid [place] Negative (NEGATIVE) 04/25/21 16:03 - Plan (1) Abdominal wall cellulitis Status: Acute Plan: VANCOMYCIN 1.5G IV Q12H, INVANZ 1G IV DAILY, MUCOMYST IN NEB [place], DUONEBS QID, PULMICORT NEBS BID, DIFLUCAN 100MG PO DAILY, ROBITUSSIN DM 10ML PO QID, PROTONIX 40MG IV BID, NORCO PRN, LISINOPRIL, HEMOCYTE PLUS, NYSTATIN POWDER AND SUSPENTION, REQUIP, AND ULTRAM. (2) COPD with acute bronchitis Status: Acute (3) Thrush, oral Status: Acute
[2021-04-27] MEDS: INVANZ INJ 1 GM VIAL 1 GM in NS 100 ML IV + SPIKE MINIBAG* 100 ML IV SCH (18:57)
[2021-04-27] MEDS ORDERED: VANCOMYCIN IV *PREMIX 1.5 G/300 ML BAG 1.5 G/300 ML PIGGYBACK IV SCH (21:00)
[2021-04-27] MEDS: REQUIP PO SCH (21:16)
[2021-04-28 06:28] LABS: BASOPHILS % (AUTO) 0.6 % (0.2-1.0); EOSINOPHILS # (AUTO) 0.1 x10^3/uL (0.0-0.2); EOSINOPHILS % (AUTO) 1.6 % (0.9-2.9); HEMATOCRIT 39.5 % (36.0-47.0); HEMOGLOBIN 12.5 g/dL (12.0-16.0); LYMPHOCYTES # (AUTO) 2.3 X10^3/uL (1.3-2.9); LYMPHOCYTES % (AUTO) 30.1 % (21.0-51.0); MEAN CORPUSCULAR HGB CONC 31.6 g/dL (33.0-35.0); MEAN CORPUSCULAR VOLUME 82.4 fL (80.0-100.0); MEAN PLATELET VOLUME 8.6 fL (7.4-11.0); MONOCYTES % (AUTO) 12.5 % (0.0-13.0); NEUTROPHILS # (AUTO) 4.2 x10^3/uL (2.2-4.8); NEUTROPHILS % (AUTO) 55.2 % (42.0-75.0); PLATELET COUNT 381 X10^3/uL (150.0-450.0); RED CELL DISTRIBUTION WIDTH 15.7 % (11.6-16.5); WHITE BLOOD COUNT 7.7 X10^3/uL (3.6-10.0)
[2021-04-28 06:42] LABS: ALANINE AMINOTRANSFERASE 48 Units/L (12-78); ALBUMIN 3.1 g/dL (3.4-5.0); ALKALINE PHOSPHATASE 150 Units/L (46-116); ASPARTATE AMINO TRANSFERASE 39 Units/L (15-37); BLOOD UREA NITROGEN 9 mg/dL (7-18); CALCIUM 8.8 mg/dL (8.5-10.1); CARBON DIOXIDE 33.3 mmol/L (21-32); CHLORIDE 103 mmol/L (98-107); COR CA(FOR HYPOALB) 9.5 mg/dL (8.5-10.1); CREATININE 0.91 mg/dL (0.55-1.02); SODIUM 142 mmol/L (136-145); eGFR NON BLACK RACES > 60 (>60)
--- NOTE | 2021-04-28 07:05 | RAD ---
HISTORYDyspneaSTUDYSingle portable view of the chest.COMPARISONChest radiograph dated April 25, 2021.FINDINGSThe trachea is midline. The cardiac silhouette is enlarged. Abnormally increased interstitial densities/disease is seen throughout the lung jacobs which would imply a diffuse bronchitis or bronchiolitis. Interstitial edema is also possible but considered less likely given the lack of any pleural effusions. Please correlate medically and with volume status. No pneumothorax or other cardiopulmonary changes are seen. The bones are stable.IMPRESSIONAs above.Electronically signed by: AJ CURRAN III (Apr 28, 2021 07:03:15)
[2021-04-28] MEDS: DIFLUCAN PO SCH (08:36)
[2021-04-28] MEDS: NYSTATIN POWDER TOP SCH (08:37)
[2021-04-28] MEDS: INVANZ INJ 1 GM VIAL 1 GM in NS 100 ML IV + SPIKE MINIBAG* 100 ML IV SCH (08:37)
[2021-04-28] MEDS: HEMOCYTE-PLUS PO SCH (08:37)
[2021-04-28] MEDS: PROTONIX INJ 40 MG VIAL IVP SCH (08:38)
[2021-04-28] MEDS: ROBITUSSIN DM PO SCH (08:38)
[2021-04-28] MEDS: ZESTRIL TAB 40 MG PO SCH (08:38)
[2021-04-28] MEDS: NYSTATIN SUSP MT SCH (08:38)
[2021-04-28] MEDS: NORCO 5/325 MG TAB PO PRN (08:46)
[2021-04-28] MEDS: MUCOMYST (RESPIRATORY USE ONLY) NEB SCH (09:09)
[2021-04-28] MEDS: DUONEB 0.5 MG/3 MG (3 mL) NEB SCH (09:09)
[2021-04-28] MEDS: PULMICORT NEB TX 0.5 MG NEB SCH (09:09)
[2021-04-28 10:22] VITALS: BP 176/85
== END 2021-04-28 11:15 | disposition home or self-care (01) | DRG 603 ==
LOC: MED/SURG 13:11
PROVIDERS: ADMIT Internal Medicine; ATTEND Internal Medicine
DX: J44.0 Chronic obstructive pulmonary disease with (acute) lower respiratory infection; B37.0 Candidal stomatitis; S31.109A Unspecified open wound of abdominal wall, unspecified quadrant without penetration into peritoneal cavity, initial encounter; I10 Essential (primary) hypertension; Z20.822 Contact with and (suspected) exposure to COVID-19; B96.89 Other specified bacterial agents as the cause of diseases classified elsewhere; J44.1 Chronic obstructive pulmonary disease with (acute) exacerbation; L03.311 Cellulitis of abdominal wall; K21.9 Gastro-esophageal reflux disease without esophagitis

== ENCOUNTER 2021-10-07 09:01 | Observation (INO) ==
--- NOTE | 2021-10-07 13:35 | RAD ---
CHEST, 1 VIEWHISTORY: COPDStudy: PA and lateral views of the chest.Comparison:April 28, 2021Findings:The cardiomediastinal silhouette is normal.No focal consolidations, pleural effusions or pneumothorax. Possible new right-sided lung nodule measuring 2.6 cm within the right lower lobe. Diffuse interstitial prominence which is similar to priors.IMPRESSION:1. Diffuse interstitial prominence which is similar to priors may represent edema versus atypical infection.2. Right lower lobe pulmonary nodule which could be evaluated on a nonemergent basis by CT.Electronically signed by: CHARLIE LIU (Oct 07, 2021 13:33:29)
--- NOTE | 2021-10-07 13:40 | CT ---
HISTORYCELLULITIS.brSTUDYFACIAL W/O CONCOMPARISONNone availableTECHNIQUEAxial images through the facial bones was performed without intravenous contrast. CT scan was performed following ALARA (As low as Reasonably Achievable).Coronal and Sagittal reformatted images were performed.FINDINGSThere is mild stranding in the left pre maxillary region and in the left submandibular region with thickening of the platysma. No drainable collections. The stranding is also seen adjacent to the left maxilla. No dominant cavitations are seen in the mandible with multiple missing teeth. There is a large cavitation in the right 3rd molar. In the left there is a possible periapical lucency in the 2nd premolar in the maxilla. There is also a large cavitation in the left canine. There is no orbital retrobulbar abnormalitiesThere is no evidence of acute fractures. The mastoid cells are clear. The mandible demonstrate no acute fractures. There is no air-fluid levels in the paranasal sinuses. The temporomandibular condyles are intact. There is deformity of the nasal bones probably from old trauma.There is symmetry of the nasopharynx. No dominant thyroid masses. There is preservation of the parapharyngeal fat. The nasal septum is deviated to the right.IMPRESSIONMild edema in the pre left pre maxillary and left mandibular region. No evidence of drainable collection. Possible periapical lucency in the 2nd premolar in the maxilla as well as cavitation in the left canine of the maxilla.Electronically signed by: Milagro Pantoja (Oct 07, 2021 13:39:06)
[2021-10-07] MEDS: ZOSYN VIAL 3.375 GRAMS 3.375 G in NS 100 ML IV + SPIKE MINIBAG* 100 ML IV SCH ×3 (14:00→21:19)
[2021-10-07 14:19] LABS: BASOPHILS # (AUTO) 0.2 X10^3/uL (0.0-0.1); BASOPHILS % (AUTO) 1.3 % (0.2-1.0); EOSINOPHILS # (AUTO) 0.1 x10^3/uL (0.0-0.2); EOSINOPHILS % (AUTO) 0.5 % (0.9-2.9); HEMATOCRIT 42.6 % (36.0-47.0); HEMOGLOBIN 13.8 g/dL (12.0-16.0); LYMPHOCYTES # (AUTO) 2.4 X10^3/uL (1.3-2.9); LYMPHOCYTES % (AUTO) 19.8 % (21.0-51.0); MEAN CORPUSCULAR HEMOGLOBIN 26.7 pg (27.0-34.0); MEAN CORPUSCULAR HGB CONC 32.4 g/dL (33.0-35.0); MEAN CORPUSCULAR VOLUME 82.3 fL (80.0-100.0); MEAN PLATELET VOLUME 8.8 fL (7.4-11.0); MONOCYTES % (AUTO) 8.1 % (0.0-13.0); NEUTROPHILS # (AUTO) 8.4 x10^3/uL (2.2-4.8); NEUTROPHILS % (AUTO) 70.3 % (42.0-75.0); PLATELET COUNT 340 X10^3/uL (150.0-450.0); RED BLOOD COUNT 5.17 X10^6/uL (3.5-5.4); RED CELL DISTRIBUTION WIDTH 17.1 % (11.6-16.5); WHITE BLOOD COUNT 11.9 X10^3/uL (3.6-10.0)
[2021-10-07 14:28] LABS: ALANINE AMINOTRANSFERASE 32 Units/L (12-78); ALBUMIN 3.4 g/dL (3.4-5.0); ALKALINE PHOSPHATASE 120 Units/L (46-116); ASPARTATE AMINO TRANSFERASE 21 Units/L (15-37); BLOOD UREA NITROGEN 14 mg/dL (7-18); CALCIUM 9.2 mg/dL (8.5-10.1); CARBON DIOXIDE 31.1 mmol/L (21-32); CHLORIDE 100 mmol/L (98-107); CREATININE 0.93 mg/dL (0.55-1.02); SODIUM 137 mmol/L (136-145); TOTAL PROTEIN 8.5 g/dL (6.4-8.2); eGFR NON BLACK RACES > 60 (>60)
[2021-10-07] MEDS: APRESOLINE TAB 25 MG PO SCH ×2 (15:00→22:50)
[2021-10-07] MEDS: ZESTRIL TAB 40 MG PO SCH (15:00)
[2021-10-07] MEDS: NORVASC TAB 5 MG PO SCH (15:01)
[2021-10-07] MEDS: DUONEB 0.5 MG/3 MG (3 mL) NEB SCH ×2 (16:56→20:25)
--- NOTE | 2021-10-07 17:20 | DR.H&P ---
H&P - History & Physical for Day of: H&P Date: 10/07/21 - Chief Complaint Chief Complaint: LEFT SIDE FACE SWOLLEN, ABSCESSED TOOTH - History of Present Illness History of Present Illness: PT IS 50 WF DIRECT ADMIT FROM DR ISELA JAMES OFFICE WITH FAILED OUTPT TREATMENT FOR FACIAL CELLULITIS AND ABSCESSED TOOTH. PT HAD 2 ROUNDS OF AMOXIL AND IM ROCEPHIN WITHOUT IMPROVEMENT. PT HAS PMH OF HTN, COPD, OA, ANEMIA, GERD. - Past Medical History Past Medical History: Hypertension, Depression, Anxiety, COPD, CHF - Past Surgical History Surgical History: [employer]OUSING [employer] Surgery, Hysterectomy - Family History Family Medical History: Diabetes Mellitus, Cancer, ID, Hypertension - Social History Does patient currently use any type of tobacco product: No Have you used tobacco products in the last 12 months: No Type of Tobacco Use: None Does any household member use tobacco: No Alcohol Use: None Drug Use: None Risks, benefits, and alternatives of opioids discussed: Yes Prescription drug monitoring program results: PDMP reviewed and no concerns identified - Medications Home Medications: ciprofloxacin [From Cipro] Allergy (Verified 05/13/21 13:28) Sulfa (Sulfonamide Antibiotics) [SULFA] Allergy (Verified 05/13/21 13:28) CONTINUE taking the following medications amlodipine 5 mg PO DAILY 10/07/21 [History] amoxicillin 500 mg PO TID 10/07/21 [History] ferrous sulfate 325 mg PO DAILY 10/07/21 [History] hydralazine 50 mg PO TID 10/07/21 [History] hydrocodone-acetaminophen 1 tab PO Q8H PRN 10/07/21 [History] ipratropium-albuterol [Combivent Respimat] 1 puff INHALATION BID PRN 10/07/21 [History] meloxicam 15 mg PO DAILY 10/07/21 [History] pantoprazole 40 mg PO DAILY 10/07/21 [History] - Review of Systems Constitutional: Weakness Eyes: No Symptoms Reported ENT: Mouth Pain, Mouth Swelling Respiratory: Shortness of Breath Cardiovascular: No Symptoms Reported Gastrointestinal: Nausea Genitourinary: No Symptoms Reported Musculoskeletal: Back Pain, Other (LEFT JAW PAIN) Skin: Other (REDNESS TO LEFT CHEEK) Neurological: No Symptoms Reported - Physical Exam Vital Signs: Temperature 98.8 F Pulse Rate [Left Brachial] 78 Pulse Rate [Right Brachial] 82 Pulse Rate 87 Respiratory Rate 26 Blood Pressure [Left Arm] 172/78 Blood Pressure [Right Arm] 187/88 Blood Pressure 190/84 O2 Sat by Pulse Oximetry 97 Oriented: Normal Eyes: Normal Ear: Normal Nose: Normal Throat: Normal Respiratory: Wheezes Throughout, RLL Diminished, LLL Diminished Cardiovascular: Normal, Edema : Normal Auscultation: Bowel Sounds: Normal Palpation: Normal Tenderness: Normal Skin: Decreased Turgur, Red, Tender, Hot Musculoskeletal: Back:Lumbar Psychiatric: Anxiety Affect: Anxious Speech Pattern: Clear, Appropriate - Assessment/Plan (1) Facial cellulitis Status: Acute Plan: ADMIT, CT FACE. RESP SWAB ON ADMISSION. BLOOD CULTURES. PAIN CONTROL, IV ATBX. SOFT DIET (2) Anemia Status: Acute (3) Dental infection Status: Acute (4) COPD (chronic obstructive pulmonary disease) Qualifiers: COPD type: COPD with acute exacerbation Qualified Code(s): J44.1 - Chronic obstructive pulmonary disease with (acute) exacerbation Status: Acute (5) CHF (congestive heart failure) Status: Acute (6) Hypertension Status: Chronic - Allergies Allergies/Adverse Reactions: Allergies Allergy/AdvReac Type Severity Reaction Status Date / Time ciprofloxacin [From Cipro] Allergy Verified 05/13/21 13:28 Sulfa (Sulfonamide Allergy Verified 05/13/21 13:28 Antibiotics) [SULFA]
[2021-10-07 19:32] LABS: BILIRUBIN,URINE NEGATIVE (NEGATIVE); BLOOD/HEMOGLOBIN,URINE NEGATIVE (NEGATIVE); GLUCOSE, URINE NEGATIVE (NEGATIVE); KETONES,URINE NEGATIVE (NEGATIVE); LEUKOCYTE ESTERASE ,URINE NEGATIVE (NEGATIVE); NITRITES,URINE NEGATIVE (NEGATIVE); PROTEIN,URINE 1+ (NEGATIVE); UROBILINOGEN,URINE NORMAL (NORMAL)
[2021-10-07 19:39] LABS: APPEARANCE,URINE CLEAR (CLEAR); BACTERIA,URINE TRACE /HPF (NEGATIVE); COLOR,URINE YELLOW (YELLOW); RBC,URINE 0-2 /HPF (0-3); SQUAMOUS EPITHELIAL CELL,UR FEW /HPF (NEGATIVE)
[2021-10-07] MEDS ORDERED: STERILE WATER IRRIGATION IR ONE (20:13)
[2021-10-07] MEDS ORDERED: DUONEB 0.5 MG/3 MG (3 mL) NEB SCH (21:00)
[2021-10-07] MEDS: NORCO 7.5/325 MG TAB PO PRN (23:10)
[2021-10-08] MEDS: APRESOLINE TAB 25 MG PO SCH ×3 (05:11→21:04)
[2021-10-08] MEDS: ZOSYN VIAL 3.375 GRAMS 3.375 G in NS 100 ML IV + SPIKE MINIBAG* 100 ML IV SCH ×3 (05:12→21:20)
[2021-10-08 06:16] LABS: BASOPHILS % (AUTO) 0.7 % (0.2-1.0); EOSINOPHILS # (AUTO) 0.1 x10^3/uL (0.0-0.2); EOSINOPHILS % (AUTO) 1.1 % (0.9-2.9); HEMATOCRIT 39.1 % (36.0-47.0); HEMOGLOBIN 12.5 g/dL (12.0-16.0); LYMPHOCYTES # (AUTO) 2.2 X10^3/uL (1.3-2.9); LYMPHOCYTES % (AUTO) 31.9 % (21.0-51.0); MEAN CORPUSCULAR HEMOGLOBIN 26.4 pg (27.0-34.0); MEAN CORPUSCULAR VOLUME 82.4 fL (80.0-100.0); MEAN PLATELET VOLUME 8.5 fL (7.4-11.0); MONOCYTES # (AUTO) 0.8 x10^3/uL (0.3-0.8); MONOCYTES % (AUTO) 11.8 % (0.0-13.0); NEUTROPHILS # (AUTO) 3.7 x10^3/uL (2.2-4.8); NEUTROPHILS % (AUTO) 54.5 % (42.0-75.0); PLATELET COUNT 306 X10^3/uL (150.0-450.0); RED BLOOD COUNT 4.74 X10^6/uL (3.5-5.4); RED CELL DISTRIBUTION WIDTH 17.2 % (11.6-16.5); WHITE BLOOD COUNT 6.8 X10^3/uL (3.6-10.0)
[2021-10-08 06:32] LABS: ALANINE AMINOTRANSFERASE 25 Units/L (12-78); ALBUMIN 2.7 g/dL (3.4-5.0); ALKALINE PHOSPHATASE 95 Units/L (46-116); ASPARTATE AMINO TRANSFERASE 17 Units/L (15-37); BLOOD UREA NITROGEN 12 mg/dL (7-18); CALCIUM 8.6 mg/dL (8.5-10.1); CARBON DIOXIDE 29.6 mmol/L (21-32); CHLORIDE 101 mmol/L (98-107); COR CA(FOR HYPOALB) 9.6 mg/dL (8.5-10.1); CREATININE 0.81 mg/dL (0.55-1.02); SODIUM 137 mmol/L (136-145); TOTAL PROTEIN 7.1 g/dL (6.4-8.2); eGFR NON BLACK RACES > 60 (>60)
[2021-10-08] MEDS: NORVASC TAB 5 MG PO SCH (08:12)
[2021-10-08] MEDS: ZESTRIL TAB 40 MG PO SCH (08:12)
[2021-10-08] MEDS: DUONEB 0.5 MG/3 MG (3 mL) NEB SCH ×4 (08:55→21:40)
[2021-10-08] MEDS: LOVENOX INJ 40 MG SYR SC SCH (10:48)
--- NOTE | 2021-10-08 14:01 | PCM.PROG ---
Progress Note - Subjective Subjective: Patient is a 50 year old white female who was admitted due to facial cellulitis. Cellulitis has improved. Edema has improved. Facial cellulitis appears to be due to tooth abscess. Patient reports she is in the process of having some teeth pulled. States she is trying to get clearance from cardio and pulm prior to procedure. Patient reports improvement in symptoms. Plan for dc home on oral abx in am. - Past Medical Family Social History Past Med/Fam/Surg Hx: No changes since H&P Allergies: Allergies ciprofloxacin [From Cipro] Allergy (Verified 05/13/21 13:28) Sulfa (Sulfonamide Antibiotics) [SULFA] Allergy (Verified 05/13/21 13:28) - Review of Systems ROS: No change since H&P - Vital Signs and I&O's Vital Signs: Temperature 98.5 F Pulse Rate [Left Brachial] 71 Pulse Rate [Right Brachial] 82 Pulse Rate 73 Respiratory Rate 20 Blood Pressure [Left Arm] 181/84 Blood Pressure [Right Arm] 187/88 Blood Pressure 190/84 O2 Sat by Pulse Oximetry 94 Intake and Output: Intake & Output 10/05/21 10/06/21 10/07/21 10/08/21 23:59 23:59 23:59 23:59 Intake Total 220 / 220 810 / 810 Balance 220 / 220 810 / 810 - Physical Exam Oriented: Normal, Time, Person, Place Eyes: Normal Ear: Normal Nose: Normal Throat: Other (Poor dentention, erythema to gums with edema ) Respiratory: Generalized, Wheezes (Minimal wheezing; history of COPD) Cardiovascular: Normal : Normal Auscultation: Bowel Sounds: Normal Palpation: Normal Tenderness: Normal Skin: Normal, Red, Tender, Hot (Left side of face; improved) Musculoskeletal: Back:Lumbar Psychiatric: Anxiety Affect: Anxious Speech Pattern: Clear, Appropriate - Laboratory and Diagnostics Result Diagrams: 10/08/21 05:30 10/08/21 05:30 Labs: Laboratory WBC 6.8 X10^3/uL (3.6-10.0) 10/08/21 05:30 RBC 4.74 X10^6/uL (3.5-5.4) 10/08/21 05:30 Hgb 12.5 g/dL (12.0-16.0) 10/08/21 05:30 Hct 39.1 % (36.0-47.0) 10/08/21 05:30 MCV 82.4 fL (80.0-100.0) 10/08/21 05:30 MCH 26.4 pg (27.0-34.0) L 10/08/21 05:30 MCHC 32.0 g/dL (33.0-35.0) L 10/08/21 05:30 RDW 17.2 % (11.6-16.5) H 10/08/21 05:30 Plt Count 306 X10^3/uL (150.0-450.0) 10/08/21 05:30 MPV 8.5 fL (7.4-11.0) 10/08/21 05:30 Neut % (Auto) 54.5 % (42.0-75.0) 10/08/21 05:30 Lymph % (Auto) 31.9 % (21.0-51.0) 10/08/21 05:30 [place] % (Auto) 11.8 % (0.0-13.0) 10/08/21 05:30 Eos % (Auto) 1.1 % (0.9-2.9) 10/08/21 05:30 Baso % (Auto) 0.7 % (0.2-1.0) 10/08/21 05:30 Neut # (Auto) 3.7 x10^3/uL (2.2-4.8) 10/08/21 05:30 Lymph # (Auto) 2.2 X10^3/uL (1.3-2.9) 10/08/21 05:30 [place] # (Auto) 0.8 x10^3/uL (0.3-0.8) 10/08/21 05:30 Eos # (Auto) 0.1 x10^3/uL (0.0-0.2) 10/08/21 05:30 Baso # (Auto) 0.0 X10^3/uL (0.0-0.1) 10/08/21 05:30 Absolute Nucleated RBC 0.1 /100WBC 10/08/21 05:30 Sodium 137 mmol/L (136-145) 10/08/21 05:30 Corrected Sodium TNP 10/08/21 05:30 Potassium 3.9 mmol/L (3.5-5.1) 10/08/21 05:30 Chloride 101 mmol/L (98-107) 10/08/21 05:30 Carbon Dioxide 29.6 mmol/L (21-32) 10/08/21 05:30 BUN 12 mg/dL (7-18) 10/08/21 05:30 Creatinine 0.81 mg/dL (0.55-1.02) 10/08/21 05:30 Est GFR (MDRD) Af Amer > 60 (>60) 10/08/21 05:30 Est GFR (MDRD) Non-Af > 60 (>60) 10/08/21 05:30 Glucose 95 mg/dL (65-99) 10/08/21 05:30 Calcium 8.6 mg/dL (8.5-10.1) 10/08/21 05:30 Corrected Calcium 9.6 mg/dL (8.5-10.1) 10/08/21 05:30 Total Bilirubin 0.30 mg/dL (0.2-1.0) 10/08/21 05:30 AST 17 Units/L (15-37) 10/08/21 05:30 ALT 25 Units/L (12-78) 10/08/21 05:30 Alkaline Phosphatase 95 Units/L (46-116) 10/08/21 05:30 Total Protein 7.1 g/dL (6.4-8.2) 10/08/21 05:30 Albumin 2.7 g/dL (3.4-5.0) L 10/08/21 05:30 Globulin 4.4 g/dL (2.5-4.5) 10/08/21 05:30 Albumin/Globulin Ratio 0.6 Ratio (1.1-2.1) L 10/08/21 05:30 Specimen Type Clean catch urine 10/07/21 18:40 Urine Color Yellow (YELLOW) 10/07/21 18:40 Urine Appearance Clear (CLEAR) 10/07/21 18:40 Urine pH 6.0 (5.0 - 8.0) 10/07/21 18:40 Ur Specific [place] 1.010 (1.000-1.030) 10/07/21 18:40 Urine Protein 1+ (NEGATIVE) 10/07/21 18:40 Urine Glucose (UA) Negative (NEGATIVE) 10/07/21 18:40 Urine Ketones Negative (NEGATIVE) 10/07/21 18:40 Urine Occult Blood Negative (NEGATIVE) 10/07/21 18:40 Urine Nitrite Negative (NEGATIVE) 10/07/21 18:40 Urine Bilirubin Negative (NEGATIVE) 10/07/21 18:40 Urine Urobilinogen Normal (NORMAL) 10/07/21 18:40 Ur Leukocyte Esterase Negative (NEGATIVE) 10/07/21 18:40 Urine RBC 0-2 /HPF (0-3) 10/07/21 18:40 Urine WBC 0-2 /HPF (0-5) 10/07/21 18:40 Ur Squamous Epith Cells Few /HPF (NEGATIVE) 10/07/21 18:40 Urine Bacteria Trace /HPF (NEGATIVE) 10/07/21 18:40 Ur Culture Indicated? No/not indicated 10/07/21 18:40 SARS-CoV-2 (PCR) Negative (NEGATIVE) 10/07/21 11:41 Influenza Type A (PCR) Negative (NEGATIVE) 10/07/21 11:41 Influenza Type B (PCR) Negative (NEGATIVE) 10/07/21 11:41 RSV (PCR) Negative (NEGATIVE) 10/07/21 11:41 - Plan (1) Tooth ache Status: Acute (2) Facial cellulitis Status: Acute Narrative Support Text: IMPROVED Plan: IMPROVED. CULTURES PENDING. PAIN CONTROL, IV ATBX. REPEAT LABS IN AM (3) Dental infection Status: Acute (4) COPD (chronic obstructive pulmonary disease) Status: Chronic Plan: Not in exacerbation. Duo nebs as ordered
[2021-10-08] MEDS ORDERED: PATIENT'S HOME MEDICATION (Ipratropium-Albuterol [Combivent Respimat] 20-100 mcg/actuation IN PRN (14:06)
[2021-10-08] MEDS: HEMOCYTE-PLUS PO SCH (14:45)
[2021-10-08] MEDS: PROTONIX TAB 40 MG PO SCH (14:45)
[2021-10-08] MEDS: MOBIC TAB 15 MG PO SCH (14:45)
[2021-10-08] MEDS ORDERED: ZESTRIL TAB 40 MG PO SCH (15:00)
[2021-10-08] MEDS ORDERED: APRESOLINE TAB 25 MG PO SCH (15:00)
[2021-10-08] MEDS ORDERED: NORVASC TAB 5 MG PO SCH (15:00)
[2021-10-08 15:24] VITALS: BMI 46.5
[2021-10-08] MEDS: NORCO 7.5/325 MG TAB PO PRN (20:17)
[2021-10-09] MEDS: APRESOLINE TAB 25 MG PO SCH (05:09)
[2021-10-09] MEDS: ZOSYN VIAL 3.375 GRAMS 3.375 G in NS 100 ML IV + SPIKE MINIBAG* 100 ML IV SCH (05:09)
[2021-10-09 06:11] LABS: BASOPHILS # (AUTO) 0.1 X10^3/uL (0.0-0.1); BASOPHILS % (AUTO) 0.8 % (0.2-1.0); EOSINOPHILS # (AUTO) 0.1 x10^3/uL (0.0-0.2); EOSINOPHILS % (AUTO) 0.8 % (0.9-2.9); HEMATOCRIT 38.5 % (36.0-47.0); HEMOGLOBIN 12.3 g/dL (12.0-16.0); LYMPHOCYTES % (AUTO) 28.9 % (21.0-51.0); MEAN CORPUSCULAR HEMOGLOBIN 26.2 pg (27.0-34.0); MEAN CORPUSCULAR VOLUME 81.8 fL (80.0-100.0); MEAN PLATELET VOLUME 8.4 fL (7.4-11.0); MONOCYTES # (AUTO) 0.7 x10^3/uL (0.3-0.8); MONOCYTES % (AUTO) 10.6 % (0.0-13.0); NEUTROPHILS # (AUTO) 4.1 x10^3/uL (2.2-4.8); NEUTROPHILS % (AUTO) 58.9 % (42.0-75.0); PLATELET COUNT 294 X10^3/uL (150.0-450.0); RED CELL DISTRIBUTION WIDTH 17.6 % (11.6-16.5)
[2021-10-09 06:45] LABS: ALANINE AMINOTRANSFERASE 29 Units/L (12-78); ALBUMIN 2.9 g/dL (3.4-5.0); ALKALINE PHOSPHATASE 104 Units/L (46-116); ASPARTATE AMINO TRANSFERASE 20 Units/L (15-37); BLOOD UREA NITROGEN 11 mg/dL (7-18); CALCIUM 8.7 mg/dL (8.5-10.1); CARBON DIOXIDE 27.5 mmol/L (21-32); CHLORIDE 101 mmol/L (98-107); COR CA(FOR HYPOALB) 9.6 mg/dL (8.5-10.1); CREATININE 0.84 mg/dL (0.55-1.02); SODIUM 137 mmol/L (136-145); TOTAL PROTEIN 7.3 g/dL (6.4-8.2); eGFR NON BLACK RACES > 60 (>60)
[2021-10-09] MEDS: LOVENOX INJ 40 MG SYR SC SCH (08:41)
[2021-10-09] MEDS: MOBIC TAB 15 MG PO SCH (08:41)
[2021-10-09] MEDS: HEMOCYTE-PLUS PO SCH (08:41)
[2021-10-09] MEDS: NORVASC TAB 5 MG PO SCH (08:41)
[2021-10-09] MEDS: ZESTRIL TAB 40 MG PO SCH (08:42)
[2021-10-09] MEDS: PROTONIX TAB 40 MG PO SCH (08:42)
[2021-10-09] MEDS: DUONEB 0.5 MG/3 MG (3 mL) NEB SCH (08:50)
[2021-10-09 11:19] VITALS: BP 157/74
== END 2021-10-09 13:25 | disposition home or self-care (01) ==
LOC: MED/SURG
PROVIDERS: ADMIT Internal Medicine; ATTEND Internal Medicine
DX: J44.1 Chronic obstructive pulmonary disease with (acute) exacerbation; K21.9 Gastro-esophageal reflux disease without esophagitis; Z20.822 Contact with and (suspected) exposure to COVID-19; I50.9 Heart failure, unspecified; I11.0 Hypertensive heart disease with heart failure; K04.7 Periapical abscess without sinus; D64.9 Anemia, unspecified; L03.211 Cellulitis of face